=== PATIENT | female | born 1965 | race Caucasian/White ===

== ENCOUNTER 2020-01-02 08:00 | Outpatient (RCR) | payer OTHER, SELFPAY ==
--- NOTE | 2019-12-12 12:31 | PTOPEVAL ---
Thank you for referring Mini Maddox to [facility]. Please review, sign, date and return this plan of care ROCHELLE. Pt referred to therapy to address her UE and neck impairments related to cervical radiculopathy. She demonstrates decreased range, strength, and tolerance with daily activities due to pain. She requires additional skilled therapy 2x/wk x 6 wk to address impairments. I agree with and certify that the following plan of care is medically necessary. Referring Physician Date Attending Provider: Keesha Tom, SAMANTHA *PT Outpatient Evaluation Start: 12/12/19 10:31 Freq: Status: Active Protocol: Document 12/12/19 10:30 CAP (Rec: 12/12/19 11:19 JESSICA [id number]) Therapy Assessment Status Assessment Status Assessment Status Evaluation Outpatient Past Medical History Past Medical History Source of Past Medical History Patient,Recalled from Previous Visit, Confirmed with Patient /Family Neurological History Hx Neurological Disorders No Significant History Cardiovascular History Hx Hypercholesterolemia Yes Respiratory History Hx Respiratory Disorders No Significant History Gastrointestinal History Hx Gastroesophageal Reflux Disease Yes Hx Hernia Yes: hiatal Musculoskeletal History Hx Back Pain Yes Hx Degenerative Disk Disease Yes: L4-5 disc bulging, C 3-4, 4-5, 6-7 level Hx Orthopedic Surgery Yes: trigger finger and thumb release on right, allyson cubital tunnel release Evaluation Information Problem Diagnosis cervical radiculopathy Onset 10 years Cause none Additional Evaluation Detail 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 Her long family has a history anklysosis spondylosis. She is working at [employer] part- time. She is unable to perform squating motion to lift objects. States her muscle stay swollen , sore and painful all the time. She has difficulty with prolonged standing due to the low back. She has c/o
--- NOTE | 2020-01-28 15:00 | PCPTNOTE ---
Admitting Provider: Attending Provider: Keesha Tom, BAT CARRIER-BC Patient:Mini Maddox Date of :1965 Discharge Note Patient has not returned for any further treatments since 01/02/2020, therefore she will be discharged at this time. Patient?s initial visit was on 12/12/2019 10:30 and she had a total of 5 visits. She cancelled her remaining therapy appointments after 01/06/20. The goals have been not met due to limited therapy visits. Thank you for referring this patient to [facility]. Please review, sign, date and return this discharge summary ROCHELLE. I have been updated about the patient's current status and I agree with discharge from the above service at this time. Referring Physician Date
== END 2020-02-03 10:16 | disposition home or self-care (01) ==
LOC: ANHPT 08:00
PROVIDERS: PCP Emergency Medicine; Visit Provider Nurse Practitioner Family
DX: M54.12 Radiculopathy, cervical region (principal)
CPT/HCPCS: 97014; 97110; 97140; 97163; G0283

== ENCOUNTER → 2021-06-20 14:38 | Outpatient (CLI) | payer OTHER, SELFPAY ==
--- NOTE | ~2021-06-20 | XR_ITS ---
XR foot LT min 3V DATE: 06/21/2021 14:23 INDICATION: First metatarsal pain of both feet TECHNIQUE: 4 views COMPARISON: None FINDINGS: Plantar calcaneal enthesopathy without erosive change or periostitis. No fracture, dislocation, periosteal reaction or bone destruction is detected. IMPRESSION: Plantar calcaneal enthesopathy Reviewed, dictated and finalized at location A. C 13 CATAPULT OPERATOR
--- NOTE | ~2021-06-20 | XR_ITS ---
XR foot RT min 3V DATE: 06/20/2021 14:52 INDICATION: Bilateral first metatarsal pain TECHNIQUE: 4 views COMPARISON: 12/07/2004 right foot FINDINGS: There is mild osteoarthritis at the first metatarsophalangeal joint. No fracture or dislocation, periosteal reaction or bone destruction is evident. Small bony density between the bases of first and second metatarsal bones is likely os intermetatarse um, normal variant. IMPRESSION: Mild osteoarthritis at first metatarsophalangeal joint Reviewed, dictated and finalized at location A. R RAT
== END ==
PROVIDERS: PCP Emergency Medicine; Visit Provider Emergency Medicine
DX: M25.572 Pain in left ankle and joints of left foot (principal); M25.571 Pain in right ankle and joints of right foot; M77.32 Calcaneal spur, left foot; M19.071 Primary osteoarthritis, right ankle and foot
CPT/HCPCS: 73630

== ENCOUNTER 2021-07-06 00:54 | Day surgery (SDC) | payer OTHER, SELFPAY ==
--- NOTE | 2021-06-30 14:08 | SUR.PREOP ---
Report to the Outpatient Waiting Room, entrance under the green pavilion located off [facility], at time __0800 on date __07/06/21 . OR Time: ___999 . - You will be asked a series of questions to screen for COVID 19 for your protection. - A mask is required within the hospital. - No visitors are allowed at this time. Preoperative COVID Testing Requirements: No COVID Test needed if: (proof is required; if not received patient will have Rapid Test prior to entry) - Patient has received COVID Vaccine at least 14 days prior to procedure date or - Patient has positive COVID test result within last 90 days of surgery date. COVID Test needed if above criteria is not met If not COVID vaccinated a COVID test must be conducted within 72 hours of surgery and patient is asked to isolate self from time of testing until procedure. You will go to the [facility] for your COVID testing. The [facility] site is located at the corner of [address] [facility]. You will only be called if COVID results are positive and your surgeon may reschedule your elective surgery date. Patients may have clear liquids (water, carbonated beverages, clear teas, apple juice) until 3 hours prior to surgery with a maximum of 20 ounces. - No food from midnight until time of surgery - Infants may have breast milk until 4 hours before surgery, infant formula 6 hours prior to surgery. - Children will be allowed to drink immediately following surgery. If applicable, please bring a bottle or sippy cup to assist with drinking. Juice, water, soda, and popsicles are readily available. For infants on formula, please bring formula the day of surgery. Pacifiers are allowed. Take the following medications with a SIP of water the morning of surgery: ___AMYTRIPTYLLINE, GABAPENTIN Medications to discontinue per physician ALL VITAMINS Date to take last dose 07/03/21 Please no make-up, nail occitan, hairspray, perfume, deodorant, or body powder the day of surgery. No jewelry (including any body piercings) or valuables the day of surgery, leave them at home. Please take a shower or bath the night before, or the morning of, surgery with an antibacterial soap. Wear comfortable, loose fitting clothing. Children are encouraged to wear pajamas. - Jewelry must be removed prior to entering the operating room. Rings and piercings that are not removed may be cut off. - The hospital will not accept responsibility for valuables. - Please leave all valuables, including medications, at home the day of surgery. If you are going home after surgery, a licensed tower truck driver must drive you home. - NO public transportation without another adult. - We recommend that an adult stay with you for 24 hours following discharge. - We also recommend that you do not drive, make important decision, drink alcoholic beverages, or take any drugs that were not prescribed by your health care provider for at least 24 hours after your discharge time. For Pediatric surgeries, we recommend two adults accompany the child home (only one inside the building at this time). Follow any additional instructions given to you from your surgeon. Telephone instructions given to __PATIENT and asked if any additional questions and then verbalized understanding. Patient advised to call surgeon office or pre surgery nurse liaison [phone] if any additional questions.
[2021-06-30 14:20] VITALS: BMI 26.9
--- NOTE | 2021-07-06 07:19 | WPDHPUPDATE1 ---
History and Physical Update Update Date/Time: 07/06/21 07:19 History and Physical has been reviewed, including an updated exam of the patient. There are NO changes in the patient's condition. Risks, benefits, and alternatives have been discussed and questions answered. Patient agrees to proceed with procedure.
--- NOTE | 2021-07-06 07:33 | P.PNAN_ITS ---
Anes - Initial Pre Proc Eval Procedure: Operation Date: 07/06/21 10:00 Proposed Procedures p Right Open Carpal Tunnel Release - Dell Bullock MD Date/Time: 07/06/21 07:33 Surgeon: Dell Bullock MD Pre Op Diagnosis: right carpal tunnel syndrome Patient Data Age: 55 Gender: F Height: 1.7 m Weight: 78 kg Allergies Allergy/AdvReac Type Severity Reaction Status Date / Time codeine AdvReac Mild Headache Verified 07/06/21 08:15 Home Medications Medication Instructions Recorded Confirmed Type amitriptyline 25 mg PO BID 06/30/21 07/06/21 History calcium carbonate-vitamin D3 [All 1 tablet PO DAILY 06/30/21 07/06/21 History Day Calcium] gabapentin 600 mg PO TID 06/30/21 07/06/21 History multivitamin with minerals [All 1 tablet PO DAILY 06/30/21 07/06/21 History Purpose Multivitamin-Min] rosuvastatin 10 mg PO HS 06/30/21 07/06/21 History venlafaxine 37.5 mg PO HS 06/30/21 07/06/21 History vitamin B complex 1 cap PO DAILY 06/30/21 07/06/21 History Patient hx anesthesia problems: none Family hx anesthesia problems: none Results Review: All pre-operative results and documents have been reviewed as part of the pre-operative evaluation. [facility] Past Medical History Medical History (Updated 07/05/21 @ 13:55 by Italo Childers DO) GERD (gastroesophageal reflux disease) Hyperlipidemia Surgical History Surgical History (Updated 07/05/21 @ 13:55 by Italo Childers DO) History of cholecystectomy History of hysterectomy Social History Social History Years smoked: 10 Smoking status: Former smoker Tobacco type: cigarettes Smoking end date: 05/28/06 Alcohol intake: current Drinks per week: 4 Substance use: current Substance use type: marijuana Other substance usage details: [employer] Living arrangements: with family Spiritual care concerns: No Anes - Eval Final PreProcedure Day of Procedure 07/06/21 07:33 Patient weight: overweight Heart: regular rate and rhythm Lungs: clear to auscultation and normal air movement Airway: Mallampati scale class II Neurological: alert and oriented Last oral intake: >/= 8 hours ASA classification: II Emergent: no Anesthetic plan: proceed Anesthesia type and monitoring: general GIVS and standard monitoring Results Review: All pre-operative results and documents have been reviewed as part of the pre-operative evaluation. Informed Consent: The patient's anesthetic plan and its attendant risks and benefits were discussed with the patient/family/POA. Questions were solicited and answers provided to the satisfaction of the patient/family/POA.
[2021-07-06 08:08] VITALS: BP 105/71; PULSE 92; RESP 16; TEMP 36.6; O2SAT 99
[2021-07-06] MEDS: LACTATED RINGERS 1,000 ML 30 ML IV CONT ×2 (08:38→09:55)
[2021-07-06] MEDS: LIDO 1%/EPINEPHRINE/PF 1:200,000 30 ML VIAL INFILTRATE (09:47)
[2021-07-06 09:55] VITALS: BP 119/69; PULSE 94; RESP 16; O2SAT 95
--- NOTE | 2021-07-06 10:01 | W.PM.PROC2 ---
Procedure Note - Detailed Date of Procedure 07/06/21 Pre-op Diagnosis right carpal tunnel syndrome Post-op Diagnosis same Procedure Performed Right open carpal tunnel release Surgeon Dell Bullock MD Anesthesia MAC Description of Procedure The right carpal tunnel was marked the patient in the holding area. She was taken to the operating where she was placed supine on the operating table. Time-out was held and confirmed. She was given IV sedation and the extremity was prepped and draped in usual fashion. The site was marked again for the incision and this area infiltrated with 1% lidocaine with epinephrine. The arm tourniquet was not utilized. The incision was made in the palm and carried bluntly through the subcutaneous tissue to the palmar fascia. This and transverse retinaculum were incised with a 15. Blade. Opening the canal. The retinaculum was divided distally and proximally under 3 point retraction. No unusual anatomy was noted. The skin wound was closed with interrupted 5 0 nylon suture. Small bandage applied usual and she is discharged from the operating room stable condition she has a prescription for hydrocodone number 7 Estimated Blood Loss -5.0 Tourniquet Time 0 Drains No Packing No Complications No immediate complications Condition stable Disposition same day
[2021-07-06 10:25] VITALS: BP 117/68; PULSE 88; RESP 16
[2021-07-06 10:50] VITALS: BP 122/71; PULSE 78; RESP 16
== END 2021-07-06 11:00 | disposition home or self-care (01) ==
PROVIDERS: PCP Emergency Medicine; Visit Provider Plastic Surgery
PROC: (CPT 64721; principal; 2021-07-06 10:00)
DX: G56.01 Carpal tunnel syndrome, right upper limb (principal); E78.5 Hyperlipidemia, unspecified; K21.9 Gastro-esophageal reflux disease without esophagitis; Z87.891 Personal history of nicotine dependence; F12.90 Cannabis use, unspecified, uncomplicated
CPT/HCPCS: 64721; A9270; J1100; J2250; J2405; J2704; J3010; J7120

== ENCOUNTER 2021-11-10 15:58 | Outpatient (CLI) | payer OTHER, SELFPAY ==
--- NOTE | ~2021-11-10 | US_ITS ---
EXAMINATION: US thyroid DATE: 11/10/2021 16:37 INDICATION: Darvin's thyroiditis. TECHNIQUE: Multiple ultrasound images of the thyroid were obtained. COMPARISON: None. FINDINGS: The right thyroid lobe measures 4.7 x 1.7 x 1.9 cm. The left thyroid lobe measures 4.8 x 1.5 x 1.7 c m. The thyroid demonstrates diffusely coarsened echotexture and hypoechogenicity. Vascularity is inc reased. No discrete nodule. IMPRESSION: 1. Heterogeneous, hypervascular thyroid, consistent with chronic lymphocytic (Darvin) thyroiditis. Reviewed, dictated and finalized at location B. IMPRESSION: 1. Heterogeneous, hypervascular thyroid, consistent with chronic lymphocytic (H ashimoto) thyroiditis.
== END 2021-11-10 15:59 | disposition home or self-care (01) ==
PROVIDERS: PCP Emergency Medicine; Visit Provider Emergency Medicine
DX: E06.3 Autoimmune thyroiditis (principal)
CPT/HCPCS: 76536

== ENCOUNTER 2022-03-01 12:30 | Outpatient (RCR) | payer OTHER, SELFPAY ==
--- NOTE | 2022-01-25 14:31 | PTOPEVAL1 ---
Evaluation Information Assessment Status Evaluation Diagnosis low back pain Onset 4 months Subjective Information Pt states about 4 weeks ago she was given an injection in her L hip, she reports this helped some. However the provider that gave her thinks injection states the pain is more likely coming from her low back. Pt reports pain along the lateral side of her L leg down into the bottom of her foot. Pt reports standing in one places causes her the most pain, she can tolerate this for no longer than 30 mins. Pt states she does not think this is sciatic pain because she has had that prior and this feels different. She currently reports pain from her hip to the bottom of her L foot. Reported Pain Level Pain Score 2: Self Report Assessment PT Clinical Summary Mini is an active 56 y/o female who presents to therapy today for her initial evaluation with a diagnosis of low back pain. Today she demonstrates excellent LE strength and ROM. She does demonstrates mild increased lumbar lordosis during static standing and gait. She will benefits from core strengthening, body mechanics, and functional mobility training to work towards pain management and symptom reduction. Plan of Care Interventions Manual Therapy,Neuro Re-education,Patient/ Caregiver Educati,Therapeutic Activities, Therapeutic Exercise PT Services Indicated Yes Treatment Frequency and 1x/wk for 5 wks or until goals are met Duration These treatments will address the objective and functional deficits as defined above. The patient will be advanced safely and appropriately in order for the patient to progress towards his/her prior level of function. Additional exercises will be introduced and as well as a comprehensive home exercise program upon discharge, if needed, ?to ensure carryover of functional gains achieved in the clinic. This treatment plan has been reviewed and agreement upon by the patient.
--- NOTE | 2022-02-15 13:36 | PCPTNOTE ---
Patient called & cancelled scheduled appointment this date due to scheduling conflicts. She has been rescheduled.
--- NOTE | 2022-02-22 13:50 | PCPTNOTE ---
Patient no showed to appointment this date. Unable to leave voicemail due to patient picking up and bad connection.
--- NOTE | 2022-03-01 13:18 | PTOPDC ---
Assessment and note entered by Lauro Perez, PT, DPT Evaluation Information Assessment Status discharge Diagnosis low back pain with radicular symptoms Onset 4 months Subjective Information Pt states she has radiating pain more significantly than when she started therapy. She reports good compliance with her HEP. She states performing her exercises helps the pain in her hips but does not decrease that pain that goes into her legs and into her feet. She reports foot pain as her limiting factor. Pt states she has learned a lot in therapy. Reported Pain Level Pain Score 4: Self Report Assessment PT Clinical Summary Mini presents to therapy today for her progress report following 4 visits of therapy to treat her low back pain with radicular symptoms. Today she reports minor increases in pain and radicular symptoms. She states she has learned a lot in therapy and she can help to reduce her own pain when it occurs. She demonstrates decreased tenderness to palpation and now has a negative slump test allyson. She states she would like to continue her exercise on her own and follow up with her provider. She will be discharged from skilled therapy services at this time with instructions to continue her HEP upon discharge. Plan of Care PT Services Indicated No Treatment Frequency and to be discharged Duration
== END 2022-03-02 10:54 | disposition home or self-care (01) ==
LOC: ANHGOSHPT 12:30
PROVIDERS: PCP Emergency Medicine; Visit Provider Nurse Practitioner Family
DX: M54.50 Low back pain, unspecified (principal)
CPT/HCPCS: 97110; 97112; 97140; 97161; 97530

== ENCOUNTER 2022-09-27 01:25 | Day surgery (SDC) | payer OTHER, SELFPAY ==
[2022-09-15 11:25] VITALS: BMI 25.9
--- NOTE | 2022-09-26 16:42 | PM.HPGS ---
History of Present Illness History of Present Illness Consent: Risks, benefits, and alternatives have been discussed and questions answered. Patient agrees to proceed with procedure. Chief complaint: family hx colon ca, hx of colon polyps Narrative: Mini Maddox is a 56 year old female who was referred for colonoscopy. She has a family history of colon cancer, and she herself has had a polyp removed in the past. Her brother, aunt, and cousin, all have had colon cancer. Review of Systems Review of Systems: All systems reviewed & are unremarkable except as noted in HPI and below PMFSH Past Medical History Medical History (Updated 09/26/22 @ 16:42 by Roger Storey MD) GERD (gastroesophageal reflux disease) Hyperlipidemia Pain, postoperative, acute Surgical History Surgical History History of cholecystectomy History of hysterectomy Social History Social History Years smoked: 10 Smoking status: Former smoker Tobacco type: cigarettes Smoking end date: 05/28/06 Alcohol intake: current Drinks per week: 5 Alcohol use details: wine Substance use: current Substance use type: marijuana Other substance usage details: cbd gummies for sleep Living arrangements: with family Spiritual care concerns: No Meds Home Medications and Allergies Home Medications Medication Instructions Recorded Confirmed Type amitriptyline 25 mg tablet 25 mg PO BID 06/30/21 09/15/22 History calcium carb-vitamin D3 ER 600 mg 1 tablet PO DAILY 06/30/21 09/15/22 History (1,500 mg)-500 unit tablet,ER 24 hr gabapentin 600 mg tablet 600 mg PO TID 06/30/21 09/15/22 History multivitamin with minerals 1 tablet PO DAILY 06/30/21 09/15/22 History rosuvastatin 10 mg tablet 10 mg PO HS 06/30/21 09/15/22 History venlafaxine 37.5 mg 37.5 mg PO HS 06/30/21 09/15/22 History capsule,extended release 24 hr vitamin B complex 1 cap PO DAILY 06/30/21 09/15/22 History Allergies Allergy/AdvReac Type Severity Reaction Status Date / Time codeine AdvReac Mild Headache Verified 09/27/22 07:06 Exam Const: General: alert Orientation/consciousness: patient oriented x3 Resp: Auscultation: clear to auscultation bilaterally Cardio: Rhythm: regular rhythm GI: GI Palp: Yes Soft to palpation and No Tenderness to palpation present (GI) Neuro: General: patient oriented x3 Assessment and Plan Assessment and plan (1) Colon cancer screening: Code(s): Z12.11 - Encounter for screening for malignant neoplasm of colon Status: Acute Assessment and Plan: Colonoscopy with possible biopsy or polypectomy or cautery or injection of substances.
[2022-09-27 07:09] VITALS: BP 137/79; PULSE 94; RESP 16; TEMP 35.9; O2SAT 100
[2022-09-27] MEDS: LACTATED RINGERS 1,000 ML 150 ML IV CONT (07:21)
--- NOTE | 2022-09-27 07:24 | WPDANESEPPF ---
Anes - Initial Pre Proc Eval Procedure: Operation Date: 09/27/22 08:30 Proposed Procedures p Colonoscopy - Roger Storey MD Date/Time: 09/27/22 07:24 Surgeon: Roger Storey MD Pre Op Diagnosis: family hx colon ca, hx of colon polyps Patient Data Age: 56 Gender: F Height: 1.7 m Weight: 75.6 kg Last Vital Signs Temp 35.9 C L 09/27/22 07:09 Pulse 94 09/27/22 07:09 Resp 16 09/27/22 07:09 BP 137/79 09/27/22 07:09 Pulse Ox 100 09/27/22 07:09 O2 Del Method Room Air 09/27/22 07:09 Allergies Allergy/AdvReac Type Severity Reaction Status Date / Time codeine AdvReac Mild Headache Verified 09/27/22 07:06 Home Medications Medication Instructions Recorded Confirmed Type amitriptyline 25 mg tablet 25 mg PO BID 06/30/21 09/15/22 History calcium carb-vitamin D3 ER 600 mg 1 tablet PO DAILY 06/30/21 09/15/22 History (1,500 mg)-500 unit tablet,ER 24 hr gabapentin 600 mg tablet 600 mg PO TID 06/30/21 09/15/22 History multivitamin with minerals 1 tablet PO DAILY 06/30/21 09/15/22 History rosuvastatin 10 mg tablet 10 mg PO HS 06/30/21 09/15/22 History venlafaxine 37.5 mg 37.5 mg PO HS 06/30/21 09/15/22 History capsule,extended release 24 hr vitamin B complex 1 cap PO DAILY 06/30/21 09/15/22 History Patient hx anesthesia problems: none Family hx anesthesia problems: none Results Review: All pre-operative results and documents have been reviewed as part of the pre-operative evaluation. [facility] Past Medical History Medical History (Updated 09/26/22 @ 16:42 by Roger Storey MD) GERD (gastroesophageal reflux disease) Hyperlipidemia Pain, postoperative, acute Surgical History Surgical History History of cholecystectomy History of hysterectomy Social History Social History Years smoked: 10 Smoking status: Former smoker Tobacco type: cigarettes Smoking end date: 05/28/06 Alcohol intake: current Drinks per week: 5 Alcohol use details: wine Substance use: current Substance use type: marijuana Other substance usage details: cbd gummies for sleep Living arrangements: with family Spiritual care concerns: No Anes - Eval Final PreProcedure Day of Procedure 09/27/22 07:24 Patient weight: overweight Heart: regular rate and rhythm Lungs: clear to auscultation and normal air movement Airway: Mallampati scale class II Neurological: alert and oriented Last oral intake: >/= 8 hours ASA classification: II Emergent: no Anesthetic plan: proceed Anesthesia type and monitoring: general GIVS and standard monitoring Results Review: All pre-operative results and documents have been reviewed as part of the pre-operative evaluation. Informed Consent: The patient's anesthetic plan and its attendant risks and benefits were discussed with the patient/family/POA. Questions were solicited and answers provided to the satisfaction of the patient/family/POA.
[2022-09-27 08:08] VITALS: BP 127/86; PULSE 83; RESP 17; O2SAT 100
[2022-09-27 08:18] VITALS: BP 110/67; PULSE 80; RESP 16; O2SAT 100
[2022-09-27 08:28] VITALS: BP 127/74; PULSE 80; RESP 16; O2SAT 100
== END 2022-09-27 08:37 | disposition home or self-care (01) ==
PROVIDERS: PCP Emergency Medicine; Visit Provider Internal Medicine Gastroenterology
PROC: 0DJD8ZZ Inspection of Lower Intestinal Tract, Via Natural or Artificial Opening Endoscopic (ICD-10-PCS; CPT 45378; principal; 2022-09-27 08:30)
DX: Z12.11 Encounter for screening for malignant neoplasm of colon (principal); K57.30 Diverticulosis of large intestine without perforation or abscess without bleeding; Z80.0 Family history of malignant neoplasm of digestive organs; Z86.010 Personal history of colon polyps; E78.5 Hyperlipidemia, unspecified; Z87.891 Personal history of nicotine dependence; F12.90 Cannabis use, unspecified, uncomplicated
CPT/HCPCS: 45378; J2704; J7120

== ENCOUNTER 2022-10-12 07:37 | Outpatient (CLI) | payer OTHER, SELFPAY ==
--- NOTE | ~2022-10-12 | DEXA_ITS ---
Bone Density Report Name: NAKIA REY Age: 56 Sex: Female Ethnicity: White Date of : 1965 Indication: postmenopausal; screening for osteoporosis; hysterectomy; Referring Provider: CHANDLER GONZALEZ Study: Bone densitometry was performed. Exam Date: October 12, 2022 Accession number: [id number] Bone Density: Region BMD T-score Z-score Classification AP Spine(L1-L4) 0.944 -0.9 0.3 Normal Femoral Neck (Left) 0.802 -0.4 0.8 Normal Total Hip (Left) 0.912 -0.2 0.6 Normal Femoral Neck (Right) 0.757 -0.8 0.4 Normal Total Hip (Right) 0.885 -0.5 0.4 Normal Total Hip Mean 0.898 -0.4 0.5 Normal World Health Organization criteria for BMD impression classify patients as: Normal (T-score at or above -1.0), Osteopenia (T-score between -1.0 and -2.5), or Osteoporosis (T-score at or below -2.5). 10-year Fracture Risk: FRAX not reported because: All T-scores for Spine Total, Hip Total, Femoral Neck at or above -1.0 Previous Exams: Region Exam Age BMD T-score BMD Change BMD Change Date g/cm2 vs Baseline vs Previous AP Spine (L1-L4) 10/12/2022 56 0.944 -0.9 -0.063 (-6.3%) -0.063 (-6.3%) 10/15/2017 51 1.007 -0.4 Total Hip(Left) 10/12/2022 56 0.912 -0.2 -0.026 (-2.8%) -0.026 (-2.8%) 10/15/2017 51 0.938 0.0 Total Hip(Right) 10/12/2022 56 0.885 -0.5 -0.069 (-7.2%) -0.069 (-7.2%) 10/15/2017 51 0.953 0.1 *Denotes significance at 95% confidence level, LSC for AP Spine = 0.022 g/cm2, LSC for Total Hip = 0.027 g/cm2 Clinical Information Provided by Patient: Has used the following medications: Vitamin D, Calcium Has the following medical conditions: Hysterectomy Patient maximum height was 67 Menopause Age: 35 No regular weight bearing exercise Drinks caffeinated beverages Onset of menses at age 11 Number of children 2 Impression: The patient has normal bone mass. The BMD for the AP Spine (L1-L4) decreased, changing by -6.3% since the last DXA exam. The BMD for the Total Hip(Right) decreased, changing by -7.2% since the last DXA exam. Discussion: BONE DENSITY IS ABOVE THE MINIMUM DESIRABLE LEVEL AT ALL SKELETAL SITES TESTED. This patient?s bone mineral density is above the minimum desirable level (T-score -1.0 or better) at all sites measured. The patient should follow a healthful lifestyle (good nutrition with adequate calcium and vitamin D, and appropriate weight-bearing exercise). Follow-Up: Consider repeating this study in 3
--- NOTE | ~2022-10-12 | MM_ITS ---
EXAMINATION: MM screening [facility] BI w kevyn HISTORY: Screening mammogram TECHNIQUE: Craniocaudal and mediolateral oblique 3-D tomosynthesis images were obtained and synthetic 2-D images were generated. CAD analysis was submitted and interpreted. COMPARISON: 10/15/2017, 08/08/2006 BREAST PARENCHYMAL COMPOSITION: There are scattered areas of fibroglandular density. FINDINGS: No suspicious mass, calcification, or architectural distortion are identified in either tamara ast to suggest malignancy. There has been no suspicious interval change. IMPRESSION: 1. No mammographic evidence of malignancy. 2. Recommend routine screening mammography in one year. BI-RADS Category 1: Negative Reviewed, dictated and finalized at location A.
== END 2022-10-12 07:38 | disposition home or self-care (01) ==
PROVIDERS: PCP Emergency Medicine; Visit Provider Emergency Medicine
DX: Z12.31 Encounter for screening mammogram for malignant neoplasm of breast (principal); Z78.0 Asymptomatic menopausal state
CPT/HCPCS: 77063; 77067; 77080

== ENCOUNTER 2022-12-18 07:40 | Outpatient (CLI) | payer OTHER, SELFPAY ==
--- NOTE | ~2022-12-18 | US_ITS ---
US abdomen complete EXAMINATION: US Abdomen Complete INDICATION: Liver disease PROCEDURE: Realtime High Resolution abdomen ultrasound. COMPARISON: No prior studies for comparison FINDINGS: Gallbladder within normal limits. No gallstones, pericholecystic fluid, gallbladder wall t hickening or biliary dilatation. Common bile duct measures 4 mm. Liver echotexture is increased, consistent with fatty infiltration.. Pancreas within normal limits. Pancreatic tail is obscured by bowel gas. Spleen is unremarkeable. Renal echotexture is within norm al limits bilaterally without hydronephrosis, contour deforming mass or renal stone. Right kidney aliza sures 10.5 cm. Left kidney measures 10.4 cm. Visualized aspects of the aorta and IVC are within normal limits. Portal vein is patent. No sonograph ic Kulkarni's sign indicated by the technologist. IMPRESSION: 1: Hepatic steatosis. Reviewed, dictated and finalized at location A. IMPRESSION: 1: Hepatic steatosis.
== END 2022-12-18 07:41 | disposition home or self-care (01) ==
LOC: ANHIMG 07:44
PROVIDERS: PCP Emergency Medicine; Visit Provider Emergency Medicine
DX: K76.0 Fatty (change of) liver, not elsewhere classified (principal)
CPT/HCPCS: 76700

== ENCOUNTER 2023-06-29 12:53 | Emergency (ER) | payer BC, SELFPAY ==
[2023-06-29 13:06] VITALS: BP 122/83; PULSE 89; RESP 16; TEMP 36.4; O2SAT 100
--- NOTE | 2023-06-29 13:22 | ED.URI ---
HPI - URI/Sore Throat General Chief Complaint: Upper Respiratory Infection Stated Complaint: SINUS CONGESTION Time Seen by Provider: 06/29/23 13:18 Source: patient and RN notes reviewed Mode of arrival: ambulatory Limitations: no limitations History of Present Illness HPI Narrative: Patient presents today with a 2 week history cough, congestion. Today she noted left ear pain, pressure behind her left eye, and pressure to the left upper jaw/maxillary sinus area. She has been trying Carissa-Mcadoo Plus with mild relief. Reports cough early on, but this has since resolved. Related Data Home Medications Medication Instructions Recorded Confirmed amitriptyline 25 mg tablet 25 mg PO BID 06/30/21 06/29/23 calcium carb-vitamin D3 ER 600 mg 1 tablet PO DAILY 06/30/21 06/29/23 (1,500 mg)-500 unit tablet,ER 24 hr gabapentin 600 mg tablet 600 mg PO TID 06/30/21 06/29/23 multivitamin with minerals 1 tablet PO DAILY 06/30/21 06/29/23 rosuvastatin 10 mg tablet 10 mg PO HS 06/30/21 06/29/23 venlafaxine 37.5 mg 37.5 mg PO HS 06/30/21 06/29/23 capsule,extended release 24 hr ascorbic acid 125 mg-collagen, cap PO 06/01/23 06/01/23 hydrolyzed 740 mg capsule (Collagen Plus Vitamin C) cyclobenzaprine 10 mg tablet 10 mg PO DAILY 06/01/23 06/29/23 esomeprazole magnesium 20 mg 20 mg PO DAILY 06/01/23 06/29/23 capsule,delayed release (Nexium) levothyroxine 50 mcg tablet mcg PO 06/01/23 06/01/23 melatonin 10 mg capsule 10 mg PO QHS 06/01/23 06/29/23 naproxen sodium 220 mg capsule 220 mg PO BID PRN Mild Pain (Scale 06/01/23 06/29/23 Score 1-4) niacin 500 mg tablet 500 mg PO DAILY 06/01/23 06/29/23 vitamin B complex 1 tablet PO DAILY 06/01/23 06/29/23 Allergies Allergy/AdvReac Type Severity Reaction Status Date / Time codeine AdvReac Mild Headache Verified 06/29/23 13:01 Review of Systems Review of Systems: CONSTITUTIONAL: Denies body aches, fever, chills, or sweats. EYES: Denies visual changes, redness, or discharge. ENT: Denies rhinorrhea, sore throat, or otalgia.+ congestion, ear pressure, sinus pressure CARDIOVASCULAR: Denies chest pain, palpitations, or edema. RESPIRATORY: Denies cough or dyspnea. GASTROINTESTINAL: Denies abdominal pain, nausea, vomiting, or diarrhea. GENITOURINARY: Denies dysuria or hematuria. SKIN: Denies rash, itching, or wounds. MUSCULOSKELETAL: Denies back pain, joint pain, or myalgia. NEUROLOGIC: Denies headache, numbness, tingling, or weakness. PSYCH: Denies depression or anxiety. [facility] Past Medical History Medical History Arthritis Carpal tunnel syndrome on both sides GERD (gastroesophageal reflux disease) Darvin's thyroiditis Hyperlipidemia Pain, postoperative, acute Surgical History Surgical History History of cholecystectomy History of hysterectomy History of removal of ovarian cyst Family History Family History Father Alcoholism Depression Mother Thyroid condition Sibling Carcinoma of colon Son Alcoholism Grandparent Heart problem Social History Social History Years smoked: 10 Smoking status: Former smoker Tobacco type: cigarettes Smoking end date: 05/28/06 Alcohol intake: current Drinks per week: 5 Alcohol use details: wine Substance use: current Substance use type: marijuana Other substance usage details: cbd gummies for sleep Do You Feel Safe in your Home?: Yes Lack of Transportation: No Lack of Food: Never True Current Housing: I Have Housing Concerned About Future Housing: No Difficulty Paying Gas/Electric Bills: No Difficulty Paying for Meds: No Currently Unemployed: No Education: High School Diploma/GED Difficulty w/ Childcare or Family Care: No Living arrangements: brianna
== END 2023-06-29 13:30 | disposition home or self-care (01) ==
PROVIDERS: Emergency Provider Nurse Practitioner; PCP Emergency Medicine
DX: J01.90 Acute sinusitis, unspecified (principal); Z87.891 Personal history of nicotine dependence; M19.90 Unspecified osteoarthritis, unspecified site; K21.9 Gastro-esophageal reflux disease without esophagitis; E06.3 Autoimmune thyroiditis; E78.5 Hyperlipidemia, unspecified
CPT/HCPCS: 99213; G0463

== ENCOUNTER 2024-01-31 09:11 | Outpatient (CLI) | payer BC, SELFPAY ==
[2024-01-31 14:43] LABS: Alanine Aminotransferase 34 U/L (6-35); Albumin Level 4.3 g/dL (3.5-5.1); Alkaline Phosphatase 51 U/L (38-126); Anion Gap 5 mmol/L (4-12); Aspartate Amino Transferase 37 U/L (14-36); Bilirubin,Total 0.2 mg/dL (0.2-1.3); Blood Urea Nitrogen 15 mg/dL (7-17); Calcium 9.7 mg/dL (8.4-10.2); Carbon Dioxide 34 mmol/L (22-30); Chloride 100 mmol/L (98-107); Cholesterol 189 mg/dL (0-200); Estimated Glomerular Filt Rate > 60; Glucose 102 mg/dL (65-110); HDL Direct 51 mg/dL; Potassium 5.1 mmol/L (3.4-5.0); Sodium 139 mmol/L (137-145); Triglycerides 276 mg/dL (<150)
[2024-01-31 14:54] LABS: LDL Cholesterol Direct 71 mg/dL
[2024-01-31 15:27] LABS: Free T4 Free Thyroxine 0.82 ng/mL (0.78-2.19)
[2024-01-31 15:40] LABS: Thyroid Stimulating Hormone 0.481 uIU/mL (0.465-4.680)
[2024-01-31 15:57] LABS: Total Triiodothyronine (T3) 1.24 NG/ML (0.97-1.69)
[2024-01-31 17:09] LABS: Hemoglobin A1C 6.1 % (<5.7)
== END 2024-01-31 09:12 | disposition home or self-care (01) ==
LOC: ANHGOSHLAB 09:12
PROVIDERS: PCP Emergency Medicine; Visit Provider Emergency Medicine
DX: E06.3 Autoimmune thyroiditis (principal); E78.5 Hyperlipidemia, unspecified
CPT/HCPCS: 36415; 80053; 80061; 83036; 84439; 84443; 84480

== ENCOUNTER 2024-06-11 00:31 | Day surgery (SDC) | payer BC, SELFPAY ==
[2024-06-04 14:34] VITALS: BMI 25.4
--- NOTE | 2024-06-04 14:41 | PC.NURSE ---
Report to the Outpatient Waiting Room, entrance under the green pavilion located off [facility], at time _0615_ on date _[id number]_. Planned Procedure Time: _0815_.? Time changes happen often and if your time is changed the preop area will call you the afternoon before. - You and your visitor will be asked to self-screen and do not enter if you have any COVID symptoms. Please call surgeon if you need to reschedule. - A mask is optional within the hospital at this time. - No food drink from midnight until time of surgery and no smoking. This includes no chewing gum, candy or mints. Take only the following medications with a SIP of water on the morning of surgery: ___Gabapentin, Amitriptyline, and Levothyroxine DO NOT STOP ANY OF YOUR OTHER PRESCRIPTION MEDICATIONS PRIOR TO SURGERY EXCEPT THE FOLLOWING Medications to discontinue per physician ___Vitamins and supplements Date to take last huzq____[id number]____ Please no make-up, nail sudanese, hairspray, perfume, deodorant, or body powder the day of surgery.? No jewelry (including any body piercings) or valuables the day of surgery, leave them at home.? Please take a shower or bath the night before, or the morning of, surgery with an antibacterial soap.? Wear comfortable, loose fitting clothing.? - Jewelry must be removed prior to entering the operating room.? Rings and piercings that are not removed may be cut off. - The hospital will not accept responsibility for valuables.? - Please leave all valuables, including medications, at home the day of surgery. If you are going home after surgery, a licensed hazmat truck driver must drive you home.? - NO public transportation without another adult if you receive anesthesia. - We recommend that an adult stay with you for 24 hours following discharge. - We also recommend that you do not drive, make important decision, drink alcoholic beverages, or take any drugs that were not prescribed by your health care provider for at least 24 hours after your discharge time. Follow any additional instructions given to you from your surgeon. Telephone instructions given to __Mini__and asked if any additional questions and then verbalized understanding. Patient advised to call surgeon office or pre surgery nurse liaison [phone] if any additional questions.
[2024-06-11] VITALS (7 sets, daily range): BP systolic 94–169; BP diastolic 78–98; PULSE 93–128; RESP 12–17; TEMP 36.2–36.7; O2SAT 95–100
--- NOTE | ~2024-06-11 | XR_ITS ---
EXAMINATION: XR surgery orthopedic DATE: 06/11/2024 09:11 INDICATION: Left thumb ulnar collateral ligament repair TECHNIQUE: 2 fluoroscopic images of the left thumb were obtained during procedure performed by Dr. Ab arroyo. Radiologist was not present for the imaging or procedure. The amount of fluoroscopy time us ed during this procedure was 0.3 minutes. COMPARISON: None. FINDINGS: Bone alignment is normal. Lucent likely suture anchor tract at the ulnar side of the head of the firs t metacarpal. No fracture. Mild polyarticular osteoarthritis at the radial aspect of the carpus and a t the first metacarpophalangeal and interphalangeal joints. There is some additional lucent soft tiss ue gas at the operative bed about the first metacarpophalangeal joint. IMPRESSION: 1. Suture anchor tract at the head of the first metacarpal consistent with reported first metacarpoph alangeal ulnar collateral ligament repair. Procedure note for further detail. Reviewed, dictated and finalized at location B. ONTRACTS MANAGER IMPRESSION: 1. Suture anchor tract at the head of the first metacarpal consistent with repo rted first metacarpophalangeal ulnar collateral ligament repair. Procedure note for further detail.
[2024-06-11] MEDS: LACTATED RINGERS 1,000 ML 30 ML IV CONT ×2 (06:45→09:15)
--- NOTE | 2024-06-11 06:47 | PM.HPGS ---
History of Present Illness History of Present Illness Chief complaint: left trigger thumb Narrative: Patient seen and examined in pre-operative holding area. No interval change in medical history or symptoms. Patient recalls previous discussion of benefits and alternatives to procedure. Continues to desire to proceed with left thumb ulnar collateral ligament repair or reconstruction. Reviewed procedure, post-op expectations and risks including but not limited to bleeding, infection, injury to tendon/nerve/vessel, decreased hand function, stiffness, RSD, no change or worsening of symptoms, failure of repair. I discussed the possible use of assistants and their participation in the case. Patient stated understanding and signed the consent form wishing to proceed. Review of Systems Review of Systems: All systems reviewed & are unremarkable except as noted in HPI and below PMFSH Past Medical History Medical History Carpal tunnel syndrome on both sides Darvin's thyroiditis Arthritis Pain, postoperative, acute GERD (gastroesophageal reflux disease) Hyperlipidemia Surgical History Surgical History History of removal of ovarian cyst History of hysterectomy History of cholecystectomy Family History Family History Father Alcoholism Depression Mother Thyroid condition Sibling Carcinoma of colon Son Alcoholism Grandparent Heart problem Social History Social History Social History: Caffeine-coffee Years smoked: 10 Smoking status: Former smoker Tobacco type: cigarettes Smoking end date: 06/04/06 Alcohol intake: current Drinks per week: 5 Alcohol use details: wine Substance use: current Substance use type: marijuana Other substance usage details: THC gummy every once in awhile in evening. Do You Feel Safe in your Home?: Yes Lack of Transportation: No Lack of Food: Never True Current Housing: I Have Housing Concerned About Future Housing: No Difficulty Paying Gas/Electric Bills: No Difficulty Paying for Meds: No Currently Unemployed: No Education: High School Diploma/GED Difficulty w/ Childcare or Family Care: No Living arrangements: with family Spiritual care concerns: No Meds Home Medications and Allergies Home Medications ?Medication ?Instructions ?Recorded ?Confirmed ?Type multivitamin with minerals 1 tablet PO DAILY 06/30/21 06/04/24 History ascorbic acid 125 mg-collagen, 1 cap PO DAILY 06/01/23 06/04/24 History hydrolyzed 740 mg capsule (Collagen Plus Vitamin C) esomeprazole magnesium 20 mg 20 mg PO DAILY 06/01/23 06/04/24 History capsule,delayed release (Nexium) melatonin 10 mg capsule 10 mg PO QHS 06/01/23 06/04/24 History naproxen sodium 220 mg capsule 220 mg PO BID PRN Mild Pain (Scale 06/01/23 06/04/24 History Score 1-4) niacin 500 mg tablet 500 mg PO DAILY 06/01/23 06/04/24 History vitamin B complex 1 tablet PO DAILY 06/01/23 06/04/24 History amitriptyline 25 mg tablet 25 mg PO BID #180 tabs 01/31/24 06/04/24 Rx cyclobenzaprine 10 mg tablet 10 mg PO DAILY PRN spasms 01/31/24 06/04/24 History levothyroxine 50 mcg tablet 50 mcg PO DAILY #90 tabs 01/31/24 06/04/24 Rx rosuvastatin 10 mg tablet 10 mg PO HS #90 tabs 01/31/24 06/04/24 Rx venlafaxine 37.5 mg 37.5 mg PO HS #90 caps 01/31/24 06/04/24 Rx capsule,extended release 24 hr calcium 600 mg (as 1 tablet PO DAILY 06/04/24 06/04/24 History carbonate)-vitamin D3 10 mcg (400 unit) tablet (Calcium 600 + D(3)) gabapentin 600 mg tablet 600 mg PO TID #90 tabs 06/09/24 Rx Allergies Allergy/AdvReac Type Severity Reaction Status Date / Time codeine AdvReac Mild Headache Verified 06/06/24 09:26 Exam Narrative: unchnaged Assessment and Plan Assessment and plan (1) Sprain of left thumb: Qualifiers: Encounter type: initial encounter Sprain of finger site: metacarpophalangeal joint Qualified Code(s): S63.642A - Sprain of metacarpophalangeal joint of left thumb, initial encounter Code(s): S63.602A - Unspecified sprain of left thumb, initial encounter Status: Acute Assessment and Plan: cont as above
--- NOTE | 2024-06-11 06:48 | W.PM.PROC2 ---
Procedure Note - Detailed Date of Procedure 06/11/24 Pre-op Diagnosis left thumb UCL sprain Post-op Diagnosis Same Procedure Performed left thumb UCL reconstruction Surgeon Néstor Baxter MD Table Games Dual Rate Supervisor dora quintanilla pa-c Anesthesia General and MAC Description of Procedure INFORMED CONSENT: The patient was seen and examined and marked in the pre-op area.? The patient signed the consent form. PROCEDURE IN DETAIL:The patient taken back to OR on the stretcher in supine position. Time out performed with anesthesia, surgeon and staff agreeing on patient's name site and surgery to be performed SCDs were placed on the lower extremities and inflated. A tourniquet was placed on {left} upper extremity and antibiotics given IV After anesthesia administered sedation I injected {5}cc 1%lido and 0.5% marcaine plain for thenar block The?{left upper extremity}?was prepped and draped in sterile fashion the??{left upper extremity} was? exsanguinated with Esmarch bandage and tourniquet inflated to 250mmHg Proceeded with making a sigmoidal incision left ulnar collateral ligament with a 15 blade scalpel through skin and dermis. Littler scissors were used to spread the subcutaneous tissue down to the adductor aponeurosis. The abductor was incised on its superior margin and reflected. I incised and reflected the joint capsule revealing a complete tear of proper ulnar collateral ligament from the proximal phalanx and attentuated accessory collateral ligament. The joint was inspected and articular surface appeared viable. I proceeded with placing a 0.062 k-wire in the metacarpal head and the volar third of the proximal phalanx base. wire placement was verified on multiple views of fluoroscopy. I proceeded with drilling the proximal anchor site and placed an arthrex swivel lock anchor with internal brace. I then drilled over the P1 k-wire and while holding the joint in reduction I placed another arthrex swivel lock anchor with the internal brace and a 4-0 fiberwire. The 4-0 fiberwire was used to suture the ucl remant down to the proximal phalanx anchor point and to repair the capsule. After irrigation the adductor was repaired with 5-0 prolene. There was good maintenance of reduction and resisteance to lateral stress and no impingement on mpj flexion noting the thumb could touch the base of small finger. joint reduction was verified on mini-c-arm multiple views. The skin was closed with 4-0 chromic A dressing of xeroform, 4x4, bhavana, and a thumb spica splint was applied for patient safety, security, and comfort and secured with an parth bandage after the tourniquet was let down noting the hand was warm and well perfused. The patient was then awaken from anesthesia and transferred to the recovery room in stable condition.? Complications - none EBL- 0cc Disposition - home in stable conditions dora Quintanilla PA-C was essential for positioning, retraction, fluoro, closure and dressing placement [facility] [place] Surgery - Charge Forward: Surgery Billing ([id number] for dora)
--- NOTE | 2024-06-11 07:56 | P.PNAN_ITS ---
Anes - Initial Pre Proc Eval Procedure: Operation Date: 06/11/24 08:15 Proposed Procedures p Left Thumb Ulnar Collateral Ligament Repair and Reconstruction - Néstor Baxter MD Date/Time: 06/11/24 07:56 Surgeon: Néstor Baxter MD Pre Op Diagnosis: left trigger thumb Patient Data Age: 58 Gender: F Height: 1.7 m Weight: 73.1 kg Last Vital Signs Temp 98.1 F 06/11/24 07:45 Pulse 93 06/11/24 07:45 Resp 16 06/11/24 07:45 BP 134/78 06/11/24 07:45 Pulse Ox 95 06/11/24 07:45 O2 Del Method Room Air 06/11/24 07:45 Allergies Allergy/AdvReac Type Severity Reaction Status Date / Time codeine AdvReac Mild Headache Verified 06/11/24 07:41 Home Medications ?Medication ?Instructions ?Recorded ?Confirmed ?Type multivitamin with minerals 1 tablet PO DAILY 06/30/21 06/11/24 History ascorbic acid 125 mg-collagen, 1 cap PO DAILY 06/01/23 06/11/24 History hydrolyzed 740 mg capsule (Collagen Plus Vitamin C) esomeprazole magnesium 20 mg 20 mg PO DAILY 06/01/23 06/11/24 History capsule,delayed release (Nexium) melatonin 10 mg capsule 10 mg PO QHS 06/01/23 06/11/24 History naproxen sodium 220 mg capsule 220 mg PO BID PRN Mild Pain (Scale 06/01/23 06/11/24 History Score 1-4) niacin 500 mg tablet 500 mg PO DAILY 06/01/23 06/11/24 History vitamin B complex 1 tablet PO DAILY 06/01/23 06/11/24 History amitriptyline 25 mg tablet 25 mg PO BID #180 tabs 01/31/24 06/11/24 Rx cyclobenzaprine 10 mg tablet 10 mg PO DAILY PRN spasms 01/31/24 06/11/24 History levothyroxine 50 mcg tablet 50 mcg PO DAILY #90 tabs 01/31/24 06/11/24 Rx rosuvastatin 10 mg tablet 10 mg PO HS #90 tabs 01/31/24 06/11/24 Rx venlafaxine 37.5 mg 37.5 mg PO HS #90 caps 01/31/24 06/11/24 Rx capsule,extended release 24 hr calcium 600 mg (as 1 tablet PO DAILY 06/04/24 06/11/24 History carbonate)-vitamin D3 10 mcg (400 unit) tablet (Calcium 600 + D(3)) gabapentin 600 mg tablet 600 mg PO TID #90 tabs 06/09/24 06/11/24 Rx Patient hx anesthesia problems: none Family hx anesthesia problems: none Results Review: All pre-operative results and documents have been reviewed as part of the pre- operative evaluation. [facility] Past Medical History Medical History Carpal tunnel syndrome on both sides Darvin's thyroiditis Arthritis Pain, postoperative, acute GERD (gastroesophageal reflux disease) Hyperlipidemia Surgical History Surgical History History of removal of ovarian cyst History of hysterectomy History of cholecystectomy Family History Family History Father Alcoholism Depression Mother Thyroid condition Sibling Carcinoma of colon Son Alcoholism Grandparent Heart problem Social History Social History Social History: Caffeine-coffee Years smoked: 10 Smoking status: Former smoker Tobacco type: cigarettes Smoking end date: 06/04/06 Alcohol intake: current Drinks per week: 5 Alcohol use details: wine Substance use: current Substance use type: marijuana Other substance usage details: THC gummy every once in awhile in evening. Do You Feel Safe in your Home?: Yes Lack of Transportation: No Lack of Food: Never True Current Housing: I Have Housing Concerned About Future Housing: No Difficulty Paying Gas/Electric Bills: No Difficulty Paying for Meds: No Currently Unemployed: No Education: High School Diploma/GED Difficulty w/ Childcare or Family Care: No Living arrangements: with family Spiritual care concerns: No Anes - Eval Final PreProcedure Day of Procedure 06/11/24 07:56 Patient weight: normal Heart: regular rate and rhythm Lungs: clear to auscultation Airway: Mallampati scale class II Neurological: alert and oriented Last oral intake: >/= 8 hours ASA classification: II Emergent: no Anesthetic plan: proceed Anesthesia type and monitoring: general GIVS and standard monitoring Results Review: All pre-operative results and documents have been reviewed as part of the pre- operative evaluation. Hyperlipidemia, hypothyroidism. Informed Consent: The patient's anesthetic plan and its attendant risks and benefits were discussed with the patient/family/POA. Questions were solicited and answers provided to the satisfaction of the patient/family/POA.
[2024-06-11] MEDS: LIDOCAINE 1% LOCAL INJ 10 ML VIAL INFILTRATE (08:12)
[2024-06-11] MEDS: ceFAZolin 2 GM/D5W 50 ML 2 GM/50 ML BAG IVPB (08:14)
== END 2024-06-11 10:47 | disposition home or self-care (01) ==
PROVIDERS: PCP Emergency Medicine; Visit Provider Plastic Surgery
PROC: (CPT 26540; principal; 2024-06-11 08:15)
DX: S63.642A Sprain of metacarpophalangeal joint of left thumb, initial encounter (principal); E78.5 Hyperlipidemia, unspecified; E06.3 Autoimmune thyroiditis; G56.03 Carpal tunnel syndrome, bilateral upper limbs; M19.90 Unspecified osteoarthritis, unspecified site; K21.9 Gastro-esophageal reflux disease without esophagitis; F12.90 Cannabis use, unspecified, uncomplicated; X58.XXXA Exposure to other specified factors, initial encounter; Z79.1 Long term (current) use of non-steroidal anti-inflammatories (NSAID); Z98.890 Other specified postprocedural states; Z90.49 Acquired absence of other specified parts of digestive tract; Z87.891 Personal history of nicotine dependence; Z80.0 Family history of malignant neoplasm of digestive organs; Z82.49 Family history of ischemic heart disease and other diseases of the circulatory system
CPT/HCPCS: 26540; 99199; C1713; J0690; J1100; J1596; J2003; J2250; J2371; J2405; J2704; J3010; J7120

== ENCOUNTER 2024-07-18 08:31 | Outpatient (CLI) | payer BC, SELFPAY ==
--- NOTE | ~2024-07-18 | XR_ITS ---
Left Hand Technique: PA, oblique, and lateral views were obtained. Clinical History: Sprain Findings: No acute fracture or dislocation is seen. Osseous alignment is anatomic. There is mild dege nerative change of the first CMC joint and interphalangeal joint of the thumb.. Soft tissues are unre markable. Impression: Mild degenerative changes, as above. Reviewed, dictated and finalized at location . NER OPERATOR Impression: Mild degenerative changes, as above.
--- OUTSIDE RECORDS SUMMARY | 2024-07-18 08:47 | XMS_ITS | Referral Summary ---
Author Organization [facility] Address [address] [place] [address] Care Team Providers Care Coating Mixer Tender Name Role Phone Cosmo Ruiz MD Primary Care Provider [phone] Source Comments [facility],non-owned Affiliates and Associated Physician Practices is amultiple site organization consisting of ambulatory clinics and hospital sitesin [place], [place], [place] and [place]. This disclosure is being madepursuant to the Care Everywhere program and may not contain all information available regarding this patient. Last updated 18.[facility] Allergies Active Allergy Reactions Criticality Noted Date Comments Codeine Anaphylaxis High 10/02/2017 Medications * Be aware that medications may not be up to date on this document. Alwaysverify current medications with the patient. Medication Sig Dispensed Refills Start Date End Date Status cyclobenzaprine (FLEXERIL) 10 MG tablet Take 10 mg by mouth as needed 05/15/2018 Active esomeprazole (NEXIUM) 40 MG capsule Take 1 capsule by mouth as directed 02/13/2018 Active calcium carbonate - vitamin D (CALCIUM + D3) 600-800 MG-UNIT tablet Take 1 tablet by mouth 2 times daily Active multivitamin daily tablet Take 1 tablet by mouth daily with food Active naproxen sodium ([employer] NAPROXEN SODIUM) 220 MG tablet Take 220 mg by mouth 2 times daily Active Melatonin 10 MG Take 10 mg by mouth at bedtime Active niacin CR 500 MG tablet Take 500 mg by mouth at bedtime Active simvastatin (ZOCOR) 40 MG tablet Take 40 mg by mouth at bedtime 04/19/2020 Active venlafaxine XR 24hr (EFFEXOR XR) 37.5 MG capsule Take 37.5 mg by mouth daily with food 06/10/2020 Active amitriptyline (ELAVIL) 25 MG tablet Take 25 mg by mouth at bedtime 06/26/2020 Active gabapentin (NEURONTIN) 600 MG tablet Take 600 mg by mouth 3 times daily 06/26/2020 Active Active Problems Problem Noted Date Diagnosed Date Brachioradial pruritus 07/10/2020 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 06/28/2020 Disorder of liver 06/28/2020 Gastro-esophageal reflux disease without esophag itis 06/28/2020 Generalized anxiety disorder 06/28/2020 Hyperglycemia 06/28/2020 Inconclusive mammogram 06/28/2020 Lumbago with sciatica, left side 06/28/2020 Hyperlipidemia 06/28/2020 Hyperlipidemia, unspecified 06/28/2020 Hypercalcemia 06/28/2020 Gastro-esophageal reflux disease without esophag itis 06/28/2020 Encounter for general adult medical examination with abnormal findings 06/28/2020 Chronic pain disorder 06/28/2020 Neuropathy 06/28/2020 Other spondylosis, cervical region 06/28/2020 Polyp of colon 06/28/2020 Trigger finger, right middle finger 06/28/2020 Radiculopathy, cervical region 06/28/2020 Other spondylosis, lumbar region 06/28/2020 Immunizations Name Administration Dates Next Due INFLUENZA VACCINE, CELL CULT URE, QUADR. (FLUCELVAX QUADRIVALENT; 6MO+) (CCIIV4) 02/17/2020 Social History Tobacco Use Types Packs/Day Years Used Date Smoking Tobacco: Former Cigarettes Q uit: 2006 Smokeless Tobacco: Never Alcohol Use Standard Drinks/Week Comments Yes 7 (1 standard drink = 0.6 oz pur e alcohol) Sex and Gender Information Value Date Recorded Sex Assigned at Not on file Gender Identity Not on file Sexual Orientation Not on file Last Filed Vital Signs Vital Sign Reading Time Taken Comments Blood Pressure 126/79 07/09/2020 9:50 AM REGULATOR INSPECTOR Pulse 100 07/09/2020 9:50 AM REGULATOR INSPECTOR Temperature 36.7 C (98 F) 07/09/2020 9:50 AM REGULATOR INSPECTOR Respiratory Rate 16 07/09/2020 9:50 AM REGULATOR INSPECTOR Oxygen Saturation 100% 07/09/2020 9:50 AM REGULATOR INSPECTOR Inhaled Oxygen Concentration - - Weight 74.8 kg (165 lb) 07/09/2020 9:50 AM REGULATOR INSPECTOR Height 170.2 cm (5' 7 ) 07/09/2020 9:50 AM REGULATOR INSPECTOR Body Mass Index 25.84 07/09/2020 9:50 AM REGULATOR INSPECTOR Plan of Treatment Not on file Care Teams Coating Mixer Tender Relationship Specialty Start Date End Date Cosmo Ruiz MD PCP - General 06/25/20
--- OUTSIDE RECORDS SUMMARY | 2024-07-18 08:47 | XMS_ITS | Continuity of Care Document ---
Author Organization [facility] Address [address] [place] [address] [place] [address] Phone Care Team Providers Care Thermograph Operator Name Role Phone Cosmo Ruiz MD Unavailable Unavailable Allergies, Adverse Reactions, Alerts Substance Reaction Status Criticality codeine Active No Information Medications Medication Instructions Dosage Effective Dates (start - stop) Status Comments Neurontin 600 mg tablet take 1 tablet by oral route 3 times every day 600 MG - Active avoid driving or operate machines amitriptyline 25 mg tablet take 1 tablet by oral route 2 times every day 25 MG - Active avoid driving or operate machines Synthroid 50 mcg tablet take 1 tablet by oral route every day 50 MCG - Active Crestor 10 mg tablet take 1 tablet by oral route every day 10 MG - Active Effexor XR 37.5 mg capsule,extended release take 1 capsule by oral route every day with food 37.5 MG - Active Nexium 40 mg capsule,delayed release take 1 capsule by oral route every day 40 MG - Active Problems Condition Type Effective Dates (start - stop) Clini tea Status Comments No Known Problems Procedures Procedure Date OFFICE/OUTPATIENT VISIT, EST OFFICE/OUTPATIENT VISIT, EST OFFICE/OUTPATIENT VISIT, EST PREV VISIT, EST, AGE 40-64 OFFICE/OUTPATIENT VISIT, EST OFFICE/OUTPATIENT VISIT, EST OFFICE/OUTPATIENT VISIT, EST OFFICE/OUTPATIENT VISIT, EST PREV VISIT, EST, AGE 40-64 OFFICE/OUTPATIENT VISIT, EST OFFICE/OUTPATIENT VISIT, EST OFFICE/OUTPATIENT VISIT, EST PREV VISIT, EST, AGE 40-64 OFFICE/OUTPATIENT VISIT, EST OFFICE/OUTPATIENT VISIT, EST OFFICE/OUTPATIENT VISIT, EST OFFICE/OUTPATIENT VISIT, EST OFFICE/OUTPATIENT VISIT, EST OFFICE/OUTPATIENT VISIT, EST PREV VISIT, NEW, AGE 40-64 OFFICE/OUTPATIENT VISIT, NEW Advance Directives Directive Yes / No Effective Date File Name No Information Encounters Encounter Description Practice Location Reason(s) For Visit Diagnoses Date Provider Providers Copied on Encounter [facility], [address], [place], [id number], tel:[phone] [facility] No Information 3 Joseph Man [address], [address] , [place]. tel:[phone] OFFICE/OUTPA TIENT VISIT, [facility], [address], [address], [place] tel:[phone] [facility] hashimoto1 (chief complaint) neuropathy 1 (chief complaint) diverticul osis1 (chief complaint) fatty liver1 (chief complaint) Fatty liverHashimoto's thyroiditisIdiopath ic progressive neuropathyDiverticu losis of intestine without abscess without bleedingOther specified disorder of bone densityInconclusive mammogram 3 Joseph Man [address], [address] , [place]. tel:[phone] OFFICE/OUTPA TIENT VISIT, [facility], [address], [place], [address], [place] tel:[phone] [facility] liver disease1 (chief complaint) colon1 (chief complaint) bone (chief complaint) spot (chief complaint) Liver diseaseOther specified disorder of bone densityPolyp of colonEczema 3 Joseph Man [address], [place], [place], [address] , [place]. tel:[phone] OFFICE/OUTPA TIENT VISIT, EST [facility], [address], [place], [place], [address], [place] tel:[phone] [facility] UTI1 (chief complaint) HLP (chief complaint) LFT (chief complaint) Acute cystitis without hematuriaMixed hyperlipidemiaLiver disease 0 3 Joseph Man [address], [place], [place], [address] , [place]. tel:[phone] PREV VISIT, EST, AGE 40-64 [facility], [address], [place], [place], [address], [place] tel:[phone] [facility] physical (chief complaint) Encounter for general adult medical examination without abnormal findings 3 Joseph Wilburn. [address], [place], [place], [address] , [place]. tel:[phone] OFFICE/OUTPA TIENT VISIT, EST [facility], [address], [place], [place], [address], [place] tel:[phone] [facility] hashimoto1 (chief complaint) back pain1 (chief complaint) neuropathy 1 (chief complaint) Kerline's thyroiditisEncounte r for oth screening for malignant neoplasm of breastOther spondylosis, lumbar regionIdiopathic progressive neuropathy 2 Joseph Man [address], [place], [place], [address] , [place]. tel:[phone] OFFICE/OUTPA TIENT VISIT, EST [facility], [address], [place], [place], [address], [place] tel:[phone] [facility] hashimoto1 (chief complaint) Kerline's thyroiditis 2 Joseph Wilburn. [address], [place], [place], [address] , [place]. tel:[phone] OFFICE/OUTPA TIENT VISIT, EST [facility], [address], [place], [address], [place] tel:[phone] [facility] Medicine hashimoto1 (chief complaint) HLP (chief complaint) UTI1 (chief complaint) HyperlipidemiaHashi gwen's thyroiditisUrinary tract infection 2 Joseph Wilburn. [address], [place], [place], [address] , [place]. tel:[phone] OFFICE/OUTPA TIENT VISIT, EST [facility], [address], [place], [address], [place] tel:[phone] [facility] UTI1 (chief complaint) glucose1 (chief complaint) HLP (chief complaint) thyroid1 (chief complaint) foot pain1 (chief complaint) Hyperlipidemia, unspecifiedHypothyr oidismHyperglycemia Urinary tract infectionEncounter for screening for malignant neoplasm of colonPain in unspecified foot 2 Joseph Man [address], [place], [place], [address] , [place]. tel:[phone] PREV VISIT, EST, AGE 40-64 [facility], [address], [place], [address], [place] tel:[phone] [facility] physical (chief complaint) Encounter for general adult medical examination without abnormal findings 2 Joseph Wilburn. [address], [place], [address] , [place]. tel:[phone] OFFICE/OUTPA TIENT VISIT, EST [facility], [address], [place], [place], [address], [place] tel:[phone] [facility] Medicine HLp (chief complaint) anxiety1 (chief complaint) neuropathy 1 (chief complaint) knee pain1 (chief complaint) Generalized Anxiety DisorderNeuropathyL iver diseaseHyperlipidem iaPain in unspecified knee 1 Joseph Man [address], [place], [place], [address] , [place]. tel:[phone] OFFICE/OUTPA TIENT VISIT, EST [facility], [address], [place], [address], [place] tel:[phone] [facility] chronic pain1 (chief complaint) KCL (chief complaint) Liver (chief complaint) HyperkalemiaNeuropa thyLiver diseaseChronic pain syndrome 0 Joseph Man [address], [place], [place], [address] , [place]. [phone] OFFICE/OUTPA TIENT VISIT, EST [facility], [address], [place], [address], [place] [phone] [facility] HLP (chief complaint) glucose1 (chief complaint) LFT (chief complaint) neuropathy 1 (chief complaint) HyperglycemiaLiver diseaseHyperkalemia Generalized Anxiety DisorderNeuropathyH yperlipidemia 0 Joseph Man [address], [place], [place], [address] , [place]. [phone] Referring Provider: Jefry Kay [address], [place], [place], [address]. tel:[phone] PREV VISIT, EST, AGE 40-64 [facility], [address], [place], [address], [place] tel:[phone] [facility] physical (chief complaint) Encntr for general adult medical exam w/o abnormal findings 9 Joseph Man [address], [place], [place], [address] , [place]. [phone] OFFICE/OUTPA TIENT VISIT, EST [facility], [address], [place], [place], [address], [place] tel:[phone] [facility] GERD1 (chief complaint) chronic pain1 (chief complaint) GERD w/o esophagitisNeuropat hyChronic pain syndrome 9 Joseph Man [address], [place], [address] , [place]. tel:[phone] Referring Provider: Jefry Kay [address], [place], [place], [address]. tel:[phone] OFFICE/OUTPA TIENT VISIT, [facility], [address], [place], [place], [address], [place] tel:[phone] [facility] neck pain1 (chief complaint) back pain1 (chief complaint) GERD1 (chief complaint) Other spondylosis, cervical regionOther spondylosis, lumbar regionBarrett's esophagus without dysplasiaLumbago with sciatica, left side 9 Joseph Wilburn. [address], [place], [place], [address] , [place]. tel:[phone] Referring Provider: Jefry Kay [address], [place], [address]. tel:[phone] OFFICE/OUTPA TIENT VISIT, [facility], [address], [place], [address], [place] tel:[phone] [facility] sciatica1 (chief complaint) neck pain1 (chief complaint) anxiety1 (chief complaint) Other spondylosis, cervical regionOther spondylosis, lumbar regionGeneralized Anxiety Disorder 9 Joseph Wilburn. [address], [place], [place], [address] , [place]. tel:[phone] Referring Provider: Jefry Kay [address], [place], [place], [address]. tel:[phone] OFFICE/OUTPA TIENT VISIT, [facility], [address], [place], [address], [place] tel:[phone] [facility] HLp (chief complaint) calcium1 (chief complaint) A1c (chief complaint) back pain1 (chief complaint) HypercalcemiaHyperg lycemiaPolyp of colonChronic pain syndromeHyperlipide shira 8 Joseph Man [address], [place], [address] , [place]. tel:[phone] Referring Provider: Jefry Kay [facility] [address], [place], [place], [address]. tel:[phone] OFFICE/OUTPA TIENT VISIT, [facility], [address] [place] [address] [place], [address], tel:[phone] [facility] GERD1 (chief complaint) colon polyp1 (chief complaint) HLP (chief complaint) glucose1 (chief complaint) hand pain1 (chief complaint) Crow's esophagus without dysplasiaPolyp of colonHyperlipidemia HypercalcemiaTrigge r finger, right middle finger Sep- 8 Joseph Wilburn. [address] [facility] [address], [place], [place], [address] , [place]. tel:[phone] Referring Provider: Jefry Kay [facility] [address], [place], [place], [address]. tel:[phone] OFFICE/OUTPA TIENT VISIT, [facility], [facility] [address] [place], [address], [place] tel:[phone] [facility] LFt (chief complaint) glucose1 (chief complaint) HLP (chief complaint) neck pain1 (chief complaint) GERD1 (chief complaint) Hyperlipidemia, unspecifiedHypergly cemiaLiver diseaseGERD w/o esophagitisRadiculo ellen, cervical regionInconclusive mammogram 8 Joseph [facility] [place], [place], [address] , [place]. [phone] Referring Provider: Jefry Kay [address], [place], [place], [address]. tel:[phone] PREV VISIT, NEW, AGE 40-64 [facility], [address] [place], [address], [place] tel:[phone] [facility] physical (chief complaint) Encounter for general adult medical exam w abnormal findingsHyperlipide shira, unspecifiedGastro-e sophageal reflux disease without esophagitisRadiculo ellen, cervical region 8 Joseph [address], [place], [place], [address] , . tel:[phone] Referring Provider: Jefry Kay [facility] A, [place], [place], [address]. tel:[phone] Family History Family Member Type Diagnosis Age At Onset Mother Problem (finding) Alive and well Brother Problem (finding) colon CA 57 Brother Problem (finding) Alive and well Father Problem (finding) cirrhosis from alcohol 55 Payers Payer name Insurance type Covered republican ID Authoriza tion(s) No Information Social History Type Description Quantity Date Captured Comments Alcohol Use Details Unknown Caffeine Use Details Unknown Tobacco Use Status No Information Smoking Status No Information Sex Female Chief Complaint And Reason For Visit No Information Plan Of Treatment Date Type Action Status Goal Special diet education compl eted Goal Special diet education compl eted Goal Special diet education compl eted Goal Special diet education compl eted Goal Special diet education compl eted Goal Special diet education compl eted Goal Special diet education compl eted Referral Ordered: COLONOSCOPY AND BIOPSY ordered Referral Ordered: US THYROID ordered Referral Ordered: IHSAN NANCE -Podiatric Medicine & Surgery Service Providers : Lettuce Trimmer (related to Encounter for general adult medical examination without abnormal findings) ordered Referral Ordered: FOOT XRAY, TWO VIEW Bilateral ordered Referral Referred To: IHSAN NANCE [address] [facility] [place], [place], [phone] Ordered: Referrals: Podiatric Medicine & Surgery Service Providers : Lettuce Trimmer. IHSAN NANCE. Evaluate and treat ordered Referral Ordered: Yvan Salazar -Allopathic & Osteopathic Physicians : Orthopaedic Surgery (related to Pain in unspecified knee) ordered Referral Referred To: Yvan Salazar [address], [place], [id number] Ordered: Referrals: Allopathic & Osteopathic Physicians : Orthopaedic Surgery. Yvan Salazar. Evaluate and treat ordered Referral Ordered: Pain Medicine (related to Chronic pain syndrome) ordered Referral Ordered: Referrals: Pain Medicine. Evaluate and treat ordered Referral Ordered: US EXAM, ABDOM, COMPLETE ordered Referral Referred To: Hernan Young MD [address]
[place], [address] Ordered: Referrals: Hernan Young MD. Evaluate and treat ordered Referral Ordered: US ARTERIAL DOPPLER ordered Referral Ordered: SENSE NERVE CONDUCTION TEST ordered Referral Ordered: Physical Therapy (related to Other spondylosis, lumbar region) ordered Referral Referred To: Physical Therapy Ordered: Referrals: Physical Therapy. Evaluate and treat ordered Referral Ordered: MRI LUMBAR SPINE W/O DYE ordered Referral Ordered: CERVICAL SPINE XRAY 7 VIEWS ordered Referral Ordered: Booker Tay -Allopathic & Osteopathic Physicians : Surgery (related to Trigger finger, right middle finger) ordered Referral Referred To: Booker Tay [address] [place], [place] [id number] Ordered: Referrals: Allopathic & Osteopathic Physicians : Surgery. Booker Tay. Evaluate and treat ordered Referral Ordered: MRI NECK SPINE W/O DYE ordered Referral Ordered: OPERATIVE UPPER GI ENDOSCOPY ordered Referral Ordered: DXA BONE DENSITY, AXIAL ordered Referral Ordered: MAMMOGRAM, ONE BREAST ordered Referral Ordered: MAMMOGRAM, SCREENING ordered History Of Present Illness Encounter Date Complaint History Of Prese nt Illness hashimoto1 Pt has kerline thyroid disease Pt denies any dysphagia or neck pain. Pt needs synthroid refilled neuropathy1 Pt has periphera l neuropathy Pt takes amitriptyline and neurontin and doing ok Pt needs above refilled. diverticulosis1 Pt has diverticu losis on recent colonoscopy. Pt denies any GI issue fatty liver1 Pt has mildly el evated LFT Pt denies any abd pain or jaundice Pt has fatty liver liver disease1 Pt has liver dis ease Pt denies any abd pain or jaundice. Pt drinks alcohol socially. Pt has not done liver ultrasound yet colon1 Pt has history o f benign colon polyp pt denies any lower GI issue Pt had colonoscopy done recently and did not show any polyp. Pt was told to repeat in 5 years bone Pt had bone dens ity done which as ok per patient .Pt denies any fx. Pt also had benign mammo spot Pt has a slightl y rough and scaly spot above left side of lip for several months. Pt denies any size change or itching. Pt denies any dark pigmentation HLP Pt has mild high TG Pt is on crestor Her lipid profile is ok. pt denies any myalgia LFT Pt has mildly hi gh LFT ,Pt denies any abd pain or jaundice. UTI1 Pt has UTI Pt c/ o mild dysuria burning and frequency and urgency .Pt denies any fever, chill, pelvic pain physical Pt needs annual physical Pt has chronic anxiety and depression Pt takes effexor and doing ok Pt denies any suicidal or homicidal thought Pt denies any crying spells. Pt has HLP ,Pt takes crestor. Pt denies any myalgia. Pt has chronic neck and back pain. Pt has mild radiculopathy and neuropathy symptoms. Pt takes amitriptyline and neurontin and doing ok Pt is seeing pain management with injection which helps. Pt has kerline Pt takes synthroid pt denies any dysphagia or neck pain. hashimoto1 Pt has kerline thyroid disease. Pt takes synthroid 50 mcg and her tsh is ok now. Pt denies any dysphagia or neck pain neuropathy1 Pt has periphera l neuropathy. Pt takes neurontin and amitriptyline Pt needs refill Pt denies any claudication Pt denies any cold extremity back pain1 Pt has chronic l ow back pain due to DDD and spinal stenosis. Pt has sciatica and leg numbness and tingling Pt denies any loss of bowel or bladder control or saddle area paresthesia. Pt is seeing capo management and she had back injection recently. Pt is on Neurontin hashimoto1 Pt has kerline thyroiditis. Pt started 25 mcg synthroid 6 weeks ago and her thyroid is still under replaced. Pt denies any dysphagia or neck pain. Pt does feel mild fatigue with difficulty losing weight. Pt denies any edema. Thyroid ultrasound showed hypervascular thyroid consistent with kerline thyroiditis. hashimoto1 Pt has low thyro id with high TPO. Pt denies any dysphagia or neck pain Pt denies any fatigue or weight gain Pt has difficulty losing weight UTI1 Pt denies any ur inary symptoms. her UA is clear now. HLP Pt has HLP Pt ta marlee whelan and her lipid profile is much better .Pt denies any myalgia UTI Pt has asymptoma tic UTI. Pt denies any abd pain or any urinary symptoms Pt denies any fever, chill glucose1 Pt has high gluc ose. Pt denies any polyuria polydipsia HLP Pt has HLP, Pt t akes zocor 20 mg daily and her lipid profile is over 200 thyroid1 Pt has borderlin e low thyroid Pt denies any dysphagia or neck pain .Pt denies any fatigue foot pain1 Pt carolina arthritis and heel spur on foot x ray. Pt has carin with hosiery mender next week. Pt denies any injury. physical Pt needs annual physical Pt has chronic anxiety and depression Pt takes effexor and doing ok Pt denies any suicidal or homicidal thought Pt denies any crying spells. Pt has HLP ,Pt takes zocor Pt denies any myalgia. Pt has chronic neck and back pain. Pt has mild radiculopathy and neuropathy symptoms. Pt takes amitriptyline and neurontin and doing ok Pt is seeing pain management with injection which helps. Pt c/o acute onset of bilateral 1st MP joint pain, worse on right for several weeks. pt denies any injury. Pt works at [employer] and she has been working on her feet a lot. Pt denies any redness or warmth or swelling. knee pain1 Pt has chronic b ilateral knee pain. Pt states that she was told that she is bone to bone on both knee and she used to get Gel injection to both knee Pt has chronic knee pian Pt denies any knee redness or warmth. Pt notices mild swelling sometimes. Pt denies any recent injury. HLp Pt has HLP Pt ta kes zocor. Pt denies any myalgia. anxiety1 Pt has chronic a nxiety and depression Pt takes effexor and doing ok Pt denies any suicidal or homicidal thought Pt denies any crying spells neuropathy1 Pt has chronic n europathy and chronic neck and back pain Pt is seeing pain management Pt takes neurontin and amitriptyline and doing ok Pt denies any worsening pain chronic pain1 Pt has chronic n nadia and back pain with radiculopathy and sciatica and neuropathy symptoms. Pt did see neurosurgery and was told that she needs pain management. Pt was told that she is not surgical candidate. Pt denies any loss of bladder control. Pt takes amitriptyline, neurontin. Pt needs refill of the flexeril KCL Pt has high KCL pt denies any chest palpitation or chest pain pt has not done lab yet Liver Pt denies any ab d pain or any jaundice Pt has not done ultrasound yet . HLP Pt has HLP pt carolina s high tg. pt takes zocor. pt is trying low fat and low carb diet glucose1 Pt has high gluc ose and borderline KCL. Pt denies any polyuria, polydipsia. Pt denies any palpitation or chest pain LFT Pt has borderlin e high LFT Pt denies any abd pain. Pt does NOT have viral hepatitis neuropathy1 Pt has chronic n europathy. pt doing ok with neurontin and also amitriptyline Pt denies any fatigue. physical Pt needs annual physical pt has HLP P takes zocor Pt denies any myalgia pt has chronic neck and back pain pt has radiculopathy and chronic bilateral upper arm itching and numbness Pt has chronic neck and back pain Pt is taking neurontin 300 mg TID and also amitriptyline. Pt just seen neurosurgery and she is not candidate for surgery. Pt was referred to pain management but nobody takes her insurance Pt feels anxious and depression pt denies any suicidal or homicidal thought. Pt denies any crying spells. PT has GERD pt takes nexium daily GERD1 Pt has GERD Pt t akes nexium 40 mg daily and she actually does NOT have Crow. Pt has hyperplastic colon polyp. pt states that she sometimes skips nexium but she has GERD with any spicy food. pt denies any abd pain chronic pain1 Pt has chronic s evere neck and back pain with left arm and left leg neuropathy symptoms Pt denies any claudication. Pt notices left sciatica. NCS is essentially benign except for mild left median nerve neuropathy. Pt denies any loss of bladder control. Pt states that amitriptyline and neurontin are helping slightly neck pain1 Pt c/o chronic n nadia pain with bilateral radiculopathy and left side weakness and bilateral arm itching. Pt had MRi done which showed bulging disc around neck area. Pt does have mild numbness and tingling and some subjective weakness left side. Pt denies any worsening pain back pain1 Pt has chronic l ow back pain with severe left sciatica. Pt feels tingling left leg. pt denies any leg weakness. pt walks with cane now. Pt denies any loss of bladder control. GERD1 Pt is on nexium. Pt has mild crow. Pt has colon polyp and was told benign. Pt denies any GI issue now sciatica1 pt c/o left scia kavitha and burning feeling left leg for 6 weeks. pt has chronic low back pain but the sciatica just started 6 weeks ago. PT denies any loss of bladder control. Pt has DDD on x ray. neck pain1 Pt has chronic n nadia pain with bilateral radiculopathy. Pt denies any arm weakness. Pt does feel some numbness both arm sometimes. Pt denies any injury. Xray showed neuroforaminal stenosis anxiety1 Pt has coitophob ia and she could not tolerate MRi, even with open MRi HLp Pt has HLP. Pt i s on zocor. her lipid profile is normal now. Pt denies any myalgia calcium1 Her ionized calc ium and PTH is normal. A1c Pt has borderlin e A1c. Pt denies any polyuria polydipsia back pain1 Pt has intermitt ent low back pain with recurrent left sciatica. Pt denies any injury. Pt never had x ray done for her back. Pt denies any loss of bladder control. Pt has mild neuropathy symptoms both arm. Pt denies any leg numbness. pt is on neurontin. GERD1 Pt had EGD done. Pt was found to have crow and also erosive esophagitis and hiatal hernia Pt is on nexium 40 mg now Pt states that she still has GERD and she still feels bloated midepigastric area. Pt states that her symptoms slightly improved with nexium. Pt also continues to burp sometimes. Pt still has some reflux symptoms. Pt denies any acute abdominal pain colon polyp1 Pt has colon dyana yp pt was told the polyp benign and she needs to repeat colonoscopy in 5 years Pt denies any Gi bleeding HLP Pt has HLP. Pt h as high cholesterol and high TG pt is off lopid. pt has history of high lipid profile. Pt states that she eats very healthy. Pt does not drink soda but she eats a lot carb and cheese and egg and diary products. glucose1 Pt has high gluc ose Pt denies any polyuria, polydipsia. Pt has mild high calcium. Pt denies any bone pain hand pain1 Pt notices some pain base of middle finger and base of right thumb for several months. Pt denies any injury Pt denies any numbness Pt denies any weakness Pt notices some pain with right middle finger. LFt Pt has mildly hi gh LFT Pt denies any abd pain and she does not drink alcohol glucose1 Pt has mild high glucose Pt denies any polyuria, polydipsia HLP Pt has history o f high TG Pt has changed diet since with low carb and low sweet. Her TG used to be over 600. neck pain1 Pt has chronic n nadia pain with left radiculopathy. pt feels numbness and tingling sometimes. Pt feels shooting pain down from left side of neck sometimes. Pt denies any worsening neck pain. GERD1 Pt has intermitt ent GERd. Pt takes pepcid about 2-3 per week Pt denies any nuasea, vomiting physical Pt needs annual physical. Pt has history of high TG.. Pt has chronic bilateral upper arm tingling and numbness and she has a diagnosis of brachioradial pruritis. Pt has chronic neck pain. Pt c/o left side radiculopathy and she notices left hand numbness and tingling and she has left hand weakness. Pt takes naproxen and also neurontin and doing ok. Pt has intermittent GERD and she takes pepcid PRn. 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 Related to Hy perlipidemia, unspecified Follow a low sodium diet. 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 Related to Hy perlipidemia, unspecified Follow a low sodium diet. Relate d to Hyperlipidemia, unspecified Special diet education Related t o Body mass index (BMI) 26.0-26.9, adult Assessments Type Assessment Date No Information
--- OUTSIDE RECORDS SUMMARY | 2024-07-18 08:48 | XMS_ITS | Patient Health Summary ---
Author Organization [facility] Address [address] [place] [address] Care Team Providers Care Sandblast Or Shotblast Equipment Tender Name Role Phone Cosmo Ruiz MD Primary Care Provider [phone] Note from [facility],non-owned Affiliates and Associated Physician Practices is amultiple site organization consisting of ambulatory clinics and hospital sitesin [place], [place], [place] and [place]. This disclosure is being madepursuant to the Care Everywhere program and may not contain all information available regarding this patient. Last updated 18.[facility] Allergies * Codeine(Anaphylaxis) -High Criticality Medications * Be aware that medications may not be up to date on this document. Alwaysverify current medications with the patient. * cyclobenzaprine (FLEXERIL) 10 MG tablet(Started 05/15/2018) Take 10 mg by mouth as needed * esomeprazole (NEXIUM) 40 MG capsule(Started 02/13/2018) Take 1 capsule by mouth as directed * calcium carbonate - vitamin D (CALCIUM + D3) 600-800 MG-UNIT tablet Take 1 tablet by mouth 2 times daily * multivitamin daily tablet Take 1 tablet by mouth daily with food * naproxen sodium ([employer] NAPROXEN SODIUM) 220 MG tablet Take 220 mg by mouth 2 times daily * Melatonin 10 MG Take 10 mg by mouth at bedtime * niacin CR 500 MG tablet Take 500 mg by mouth at bedtime * simvastatin (ZOCOR) 40 MG tablet(Started 04/19/2020) Take 40 mg by mouth at bedtime * venlafaxine XR 24hr (EFFEXOR XR) 37.5 MG capsule(Started 06/10/2020) Take 37.5 mg by mouth daily with food * amitriptyline (ELAVIL) 25 MG tablet(Started 06/26/2020) Take 25 mg by mouth at bedtime * gabapentin (NEURONTIN) 600 MG tablet(Started 06/26/2020) Take 600 mg by mouth 3 times daily Active Problems Problem Noted Date Diagnosed Date [...] 06/28/2020 Other spondylosis, lumbar region 06/28/2020 Immunizations * INFLUENZA VACCINE, CELL CULTURE, QUADR. (FLUCELVAX QUADRIVALENT; 6MO+) (CCIIV4)(Given 02/17/2020) Social History Tobacco Use Types Packs/Day Years [...] Comments Blood Pressure 126/79 07/09/2020 9:50 AM DIRECTOR TOXICOLOGY Pulse 100 07/09/2020 9:50 AM DIRECTOR TOXICOLOGY Temperature 36.7 C (98 F) 07/09/2020 9:50 AM DIRECTOR TOXICOLOGY Respiratory Rate 16 07/09/2020 9:50 AM DIRECTOR TOXICOLOGY Oxygen Saturation 100% 07/09/2020 9:50 AM DIRECTOR TOXICOLOGY Inhaled Oxygen Concentration - - Weight 74.8 kg (165 lb) 07/09/2020 9:50 AM DIRECTOR TOXICOLOGY Height 170.2 cm (5' 7 ) 07/09/2020 9:50 AM DIRECTOR TOXICOLOGY Body Mass Index 25.84 07/09/2020 9:50 AM DIRECTOR TOXICOLOGY Procedures * IA DRAIN/INJECT LARGE JOINT/BURSA(Performed 07/10/2020) Performed for Bilateral primary osteoarthritis of knee * IA DRAIN/INJECT LARGE JOINT/BURSA(Performed 07/10/2020) Performed for Bilateral primary osteoarthritis of knee * XR KNEE RIGHT 4VW OR MORE(Performed 07/09/2020) Performed for Right knee pain, unspecified chronicity * XR KNEE LEFT 4VW OR MORE(Performed 07/09/2020) Performed for Left knee pain, unspecified chronicity Results * IA DRAIN/INJECT LARGE JOINT/BURSA (07/10/2020 4:05 PM DIRECTOR TOXICOLOGY) Josue Castro III, MD - 07/10/2020 4:05 PM DIRECTOR TOXICOLOGY Josue Spangler III, MD 07/10/2020 4:07 PM After discussion of risks, benefits, and alternatives, the patient agreed to corticosteroid injection. The area was marked and cleaned in the usual sterile fashion using Betadine and alcohol. Ethyl chloride for topical anesthesia. The injection was performed at the left superolateral knee using 0.5% ropivacaine and 40 mg of Kenalog. This was well tolerated. Josue Spangler III, MD PROCEDURE/MIN OR SURGICAL ORDERABLES * IA DRAIN/INJECT LARGE JOINT/BURSA (07/10/2020 4:04 PM DIRECTOR TOXICOLOGY) Josue Castro III, MD - 07/10/2020 4:04 PM DIRECTOR TOXICOLOGY Josue Spangler III, MD 07/10/2020 4:07 PM After discussion of risks, benefits, and alternatives, the patient agreed to corticosteroid injection. The area was marked and cleaned in the usual sterile fashion using Betadine and alcohol. Ethyl chloride for topical anesthesia. The injection was performed at the right superolateral knee using 0.5% ropivacaine and 40 mg of Kenalog. This was well tolerated. Josue Spangler III, MD PROCEDURE/MIN OR SURGICAL ORDERABLES * XR KNEE RIGHT 4VW OR MORE (07/09/2020 10:02 AM DIRECTOR TOXICOLOGY) Anatomical Region Laterality Modality Lower Extremity Radiographic Mya ging 07/09/2020 10:3 9 AM DIRECTOR TOXICOLOGY Impressions 07/09/2020 11:36 AM DIRECTOR TOXICOLOGY IMPRESSION: 1.Small right knee effusion. 2.No acute osseous abnormality of either knee. Dictated by Anshul Polanco MD (founder and president). I, Dr. LEDA WALLS have personally reviewed and interpreted this examination/study. This report was electronically signed by LEDA WALLS on 07/09/2020 11:36 AM . Narrative 07/09/2020 11:36 AM DIRECTOR TOXICOLOGY EXAMINATION: XR KNEE RIGHT 4VW OR MORE, XR KNEE LEFT 4VW OR MORE HISTORY: Bilateral knee pain, unspecified chronicity COMPARISON: No prior study is available for comparison. FINDINGS: Right knee: There is no fracture or dislocation. The knee joint space is preserved. A small joint effusion is seen. No soft tissue swelling is present. Left knee: There is no fracture or dislocation. The knee joint space is preserved. No joint effusion is seen. No soft tissue swelling is present. Procedure Note Leda Walls MD - 07/09/2020 EXAMINATION: XR KNEE RIGHT 4VW OR MORE, XR KNEE LEFT 4VW OR MORE HISTORY: Bilateral knee pain, unspecified chronicity COMPARISON: No prior study is available for comparison. FINDINGS: Right knee: There is no fracture or dislocation. The knee joint space is preserved.A small joint effusion is seen. No soft tissue swelling is present. Left knee: There is no fracture or dislocation. The knee joint space is preserved.No joint effusion is seen. No soft tissue swelling is present. IMPRESSION: 1.Small right knee effusion. 2.No acute osseous abnormality of either knee. Dictated by Anshul Polanco MD (founder and president). Dr. LEDA Carmen have personally reviewed and interpreted this examination/study. This report was electronically signed by LEDA WALLS on 07/09/2020 11:36 AM . Josue Spangler III, MD DIAGNOSTIC IM AGING ORDERABLES * XR KNEE LEFT 4VW OR MORE (07/09/2020 10:02 AM DIRECTOR TOXICOLOGY) Anatomical Region Laterality Modality Lower Extremity Radiographic Mya ging 07/09/2020 10:3 9 AM DIRECTOR TOXICOLOGY Impressions 07/09/2020 11:36 AM DIRECTOR TOXICOLOGY IMPRESSION: 1.Small right knee effusion. 2.No acute osseous abnormality of either knee. Dictated by Anshul Polanco MD (founder and president). Dr. LEDA Carmen have personally reviewed and interpreted this examination/study. This report was electronically signed by LEDA WALLS on 07/09/2020 11:36 AM . Narrative 07/09/2020 11:36 AM DIRECTOR TOXICOLOGY EXAMINATION: XR KNEE RIGHT 4VW OR MORE, XR KNEE LEFT 4VW OR MORE HISTORY: Bilateral knee pain, unspecified chronicity COMPARISON: No prior study is available for comparison. FINDINGS: Right knee: There is no fracture or dislocation. The knee joint space is preserved. A small joint effusion is seen. No soft tissue swelling is present. Left knee: There is no fracture or dislocation. The knee joint space is preserved. No joint effusion is seen. No soft tissue swelling is present. Procedure Note Leda Walls MD - 07/09/2020 EXAMINATION: XR KNEE RIGHT 4VW OR MORE, XR KNEE LEFT 4VW OR MORE HISTORY: Bilateral knee pain, unspecified chronicity COMPARISON: No prior study is available for comparison. FINDINGS: Right knee: There is no fracture or dislocation. The knee joint space is preserved.A small joint effusion is seen. No soft tissue swelling is present. Left knee: There is no fracture or dislocation. The knee joint space is preserved.No joint effusion is seen. No soft tissue swelling is present. IMPRESSION: 1.Small right knee effusion. 2.No acute osseous abnormality of either knee. Dictated by Anshul Polanco MD (founder and president). Dr. LEDA Carmen have personally reviewed and interpreted this examination/study. This report was electronically signed by LEDA WALLS on 07/09/2020 11:36 AM . Josue Spangler III, MD DIAGNOSTIC IM AGING ORDERABLES Care Teams Sandblast Or Shotblast Equipment Tender Relationship Specialty Start Date End Date Cosmo Ruiz MD PCP - General 06/25/20
--- OUTSIDE RECORDS SUMMARY | 2024-07-18 08:48 | XMS_ITS | Clinical Summary ---
Author Organization [facility] Address [address] [place] [address] Care Team Providers Care Mainspring Winder And Oiler Name Role Phone Cosmo Ruiz MD Primary Care Provider [phone] Source Comments [facility],non-owned Affiliates and Associated Physician Practices is amultiple site organization consisting of ambulatory clinics and hospital sitesin [place], [place], [place] and [place]. This disclosure is being madepursuant to the Care Everywhere program and may not contain all information available regarding this patient. Last updated 18.[facility] Allergies Active Allergy Reactions Criticality Noted Date [...] Comments Blood Pressure 126/79 07/09/2020 9:50 AM FARM IMPLEMENT MECHANIC Pulse 100 07/09/2020 9:50 AM FARM IMPLEMENT MECHANIC Temperature 36.7 C (98 F) 07/09/2020 9:50 AM FARM IMPLEMENT MECHANIC Respiratory Rate 16 07/09/2020 9:50 AM FARM IMPLEMENT MECHANIC Oxygen Saturation 100% 07/09/2020 9:50 AM FARM IMPLEMENT MECHANIC Inhaled Oxygen Concentration - - Weight 74.8 kg (165 lb) 07/09/2020 9:50 AM FARM IMPLEMENT MECHANIC Height 170.2 cm (5' 7 ) 07/09/2020 9:50 AM FARM IMPLEMENT MECHANIC Body Mass Index 25.84 07/09/2020 9:50 AM FARM IMPLEMENT MECHANIC Plan of Treatment Health Maintenance Due Date Last Done Comments COLOGUARD (AGES 45-75) - COL ON CA SCREENING 1964 COLON MONITORING 1964 COLONOSCOPY - COLON CA SCREENING 1964 CT COLONOGRAPHY - COLON CA SCREENING 1964 Colorectal Cancer Screening 1964 FIT - COLON CA SCREENING 1964 FLEX SIG - COLON CA SCREENING 1964 MAMMOGRAM 1964 PAP SMEAR 1964 HIV SCREENING 12/10/1979 HEPATITIS C SCREENING 12/05/1982 DTAP/TDAP/TD VACCINES (1 - Tdap) 12/10/1983 HEPATITIS B VACCINE (1 of 3 - 19+ 3-dose series) 12/10/1983 PNEUMOCOCCAL VACCINE 50+ (1 of 1 - PCV) 2014 ZOSTER VACCINE (1 of 2) 2014 SCREENING FOR DIABETES 07/09/2020 COVID-19 VACCINE (1 - 2023-2 5 season) 2024 INFLUENZA VACCINE (#1) 2024 02/17/2020 DEPRESSION SCREENING 05/28/2024 HIB VACCINE Aged Out No longer eligi ble based on patient's age to complete this topic HPV VACCINE Aged Out No longer eligi ble based on patient's age to complete this topic MENINGOCOCCAL (Group B) VACCINE Aged Out No longer eligible based on patient's age to complete this topic MENINGOCOCCAL VACCINE Aged Out No yaya mathew eligible based on patient's age to complete this topic PNEUMOCOCCAL VACCINE Aged Out No long er eligible based on patient's age to complete this topic Care Teams Mainspring Winder And Oiler Relationship Specialty Start Date End Date Cosmo Ruiz MD PCP - General 06/25/20
== END 2024-07-18 08:32 | disposition home or self-care (01) ==
PROVIDERS: Visit Provider Physician Assistant Surgical
DX: S63.642A Sprain of metacarpophalangeal joint of left thumb, initial encounter (principal); M18.12 Unilateral primary osteoarthritis of first carpometacarpal joint, left hand; X58.XXXA Exposure to other specified factors, initial encounter
CPT/HCPCS: 73130

== ENCOUNTER 2024-09-10 13:17 | Emergency (ER) | payer BC, SELFPAY ==
--- NOTE | 2024-09-10 13:18 | ED.URI ---
HPI - URI/Sore Throat General Chief Complaint: Upper Respiratory Infection Stated Complaint: SINUS Time Seen by Provider: 09/10/24 13:18 Source: patient Mode of arrival: ambulatory Limitations: no limitations History of Present Illness HPI Narrative: Mini is a 58-year-old female patient presenting to the clinic today with complaints of sinus congestion x1 week. Is having sinus pressure and nasal drainage going on back of her throat. Has slight cough. No known fevers but does have some chills. Denies any color to the nasal drainage. No shortness of breath or chest pain. Related Data Home Medications ?Medication ?Instructions ?Recorded ?Confirmed ?Last Taken ?Type multivitamin with minerals 1 tablet PO DAILY 06/30/21 06/11/24 06/08/24 History ascorbic acid 125 mg-collagen, 1 cap PO DAILY 06/01/23 06/11/24 06/08/24 History hydrolyzed 740 mg capsule (Collagen Plus Vitamin C) esomeprazole magnesium 20 mg 20 mg PO DAILY 06/01/23 06/11/24 06/10/24 History capsule,delayed release (Nexium) melatonin 10 mg capsule 10 mg PO QHS 06/01/23 06/11/24 06/10/24 History naproxen sodium 220 mg capsule 220 mg PO BID PRN Mild Pain (Scale 06/01/23 06/11/24 06/08/24 History Score 1-4) niacin 500 mg tablet 500 mg PO DAILY 06/01/23 06/11/24 06/08/24 History vitamin B complex 1 tablet PO DAILY 06/01/23 06/11/24 06/08/24 History cyclobenzaprine 10 mg tablet 10 mg PO DAILY PRN spasms 01/31/24 06/11/24 06/10/24 History calcium 600 mg (as 1 tablet PO DAILY 06/04/24 06/11/24 06/08/24 History carbonate)-vitamin D3 10 mcg (400 unit) tablet (Calcium 600 + D(3)) Allergies Allergy/AdvReac Type Severity Reaction Status Date / Time codeine AdvReac Mild Headache Verified 09/10/24 13:28 Review of Systems Review of Systems: Pertinent positives per HPI. Patient denies any fever, chills, rash, headache, visual changes, dizziness, shortness of breath, chest pain, palpitations, nausea, vomiting, diarrhea, constipation, abdominal pain, or any urinary issues. [facility] Past Medical History Medical History Carpal tunnel syndrome on both sides Darvin's thyroiditis Arthritis Pain, postoperative, acute GERD (gastroesophageal reflux disease) Hyperlipidemia Surgical History Surgical History History of removal of ovarian cyst History of hysterectomy History of cholecystectomy Family History Family History Father Alcoholism Depression Mother Thyroid condition Sibling Carcinoma of colon Son Alcoholism Grandparent Heart problem Social History Social History Social History: Caffeine-coffee Years smoked: 10 Smoking status: Former smoker Tobacco type: cigarettes Smoking end date: 06/04/06 Alcohol intake: current Drinks per week: 5 Alcohol use details: wine Substance use: current Substance use type: marijuana Other substance usage details: THC gummy every once in awhile in evening. Do You Feel Safe in your Home?: Yes Lack of Transportation: No Lack of Food: Never True Current Housing: I Have Housing Concerned About Future Housing: No Difficulty Paying Gas/Electric Bills: No Difficulty Paying for Meds: No Currently Unemployed: No Education: High School Diploma/GED Difficulty w/ Childcare or Family Care: No Living arrangements: with family Spiritual care concerns: No Comments At the time of my signature, I reviewed and agree with the nursing past medical, surgical, social, and family history. There is no relevant family history pertinent to the patient complaint. Exam Narrative: General: Well-developed, well nourished, in no apparent distress Head: Normocephalic, atraumatic Eyes: Pupils equally round and reactive to light bilaterally, EOM intact, sclera and conjunctive clear, no discharge, lids normal Ears: TMs intact and clear, ear canals clear, no drainage, grossly hearing normal. Nose: Nares patent, no discharge, no inflammation, no sinus tenderness. Mouth: Oral pharynx without lesions or masses, good dentition, MMM. Neck: Supple, trachea midline, no enlargement of anterior or posterior cervical nodes, no thyroid masses or goiter palpable. Cardio: Regular rate and rhythm, s1 and s2 normal, no murmur appreciated. Resp: Clear to auscultation bilaterally, no rhonchi, rales, wheezing or rubs Course Course Emergency Course: Portions of this record may have been created with voice recognition software. Level of Care: Express Care Visit Vital Signs Vital signs: Vital signs reviewed MDM - URI/Sore Throat MDM Narrative Medical decision making narrative: At the time of visit patient is resting comfortably on the exam table. Patient appears to be nontoxic. Plan: I suspect patient has viral sinusitis. Prescription for prednisone was sent to the pharmacy. Supportive measures were discussed with the patient and they voiced understanding discharge instructions and agrees to treatment plan. Return precautions reviewed Differential Diagnosis Differential diagnosis: Likely upper respiratory infection, otitis media, sinusitis, viral infection, bronchitis, influenza, pharyngitis and other (COVID) Discharge Plan Discharge Clinical Impression: Acute viral sinusitis Patient Disposition: Home Condition: Stable Instructions: Antibiotic Form, Sinusitis (ED) Additional Instructions: Take prescription medications only as prescribed-prednisone Increase fluids and stay well hydrated Tylenol/motrin for pain/fever Flonase and OTC antihistamines as directed Vicks vapor rub to open sinuses Sinus rinses for congestion Cepacol spray, cough drops, throat lozenges, warm tea with honey/lemon, gargle salt water to soothe throat BRAT diet for diarrhea Clear liquids x 24 hours then advance as tolerated for nausea/vomiting Go to the ED if you develop a worsening in your condition- high fever not controlled by Tylenol or Motrin, dehydration, weakness, lethargy, shortness of breath, or chest pain. Follow up with your PCP in 3-5 days if symptoms persist. Patient Language: Wolof Prescriptions: New prednisone 20 mg tablet 40 mg PO DAILY 5 Days Qty: 10 0RF No Action cyclobenzaprine 10 mg tablet 10 mg PO DAILY PRN (Reason: spasms) amitriptyline 25 mg tablet 25 mg PO BID Qty: 180 3RF venlafaxine 37.5 mg capsule,extended release 24hr 37.5 mg PO HS Qty: 90 3RF rosuvastatin 10 mg tablet 10 mg PO HS Qty: 90 3RF levothyroxine 50 mcg tablet 50 mcg PO DAILY Qty: 90 3RF esomeprazole magnesium [Nexium] 20 mg capsule,delayed release(DR/EC) 20 mg PO DAILY melatonin 10 mg capsule 10 mg PO QHS niacin 500 mg tablet 500 mg PO DAILY vitamin B complex Tablet 1 tablet PO DAILY Collagen Plus Vitamin C 125-740 mg capsule 1 cap PO DAILY naproxen sodium 220 mg capsule 220 mg PO BID PRN (Reason: Mild Pain (Scale Score 1-4)) multivitamin with minerals Tablet 1 tablet PO DAILY calcium carbonate-vitamin D3 [Calcium 600 + D(3)] 600 mg-10 mcg (400 unit) tablet 1 tablet PO DAILY cephalexin 500 mg capsule 500 mg PO Q8H Qty: 21 0RF tramadol 50 mg tablet 50 mg PO Q6H PRN (Reason: pain) Qty: 12 0RF gabapentin 600 mg tablet 600 mg PO TID Qty: 90 1RF Follow-up/Referrals: Mariam Dominguez MD [Primary Care Provider] - Time of Disposition: 13:30 Quality NIHSS Nursing Documentation ED NIHSS nursing documentation: reviewed/agree
[2024-09-10 13:24] VITALS: BP 108/82; PULSE 97; RESP 16; TEMP 36.3; O2SAT 99
== END 2024-09-10 13:35 | disposition home or self-care (01) ==
PROVIDERS: Emergency Provider Nurse Practitioner Family; PCP Family Medicine
DX: J01.90 Acute sinusitis, unspecified (principal); E06.3 Autoimmune thyroiditis; E78.5 Hyperlipidemia, unspecified; K21.9 Gastro-esophageal reflux disease without esophagitis; M19.90 Unspecified osteoarthritis, unspecified site; F12.90 Cannabis use, unspecified, uncomplicated; Z87.891 Personal history of nicotine dependence
CPT/HCPCS: 99213; G0463

== ENCOUNTER 2024-10-09 08:34 | Outpatient (CLI) | payer BC, SELFPAY ==
--- OUTSIDE RECORDS SUMMARY | 2024-10-09 08:38 | XMS_ITS | Clinical Summary ---
Author Organization [facility] [employer] Address [address] [place] [address] Care Team Providers Care Unemployment Insurance Director Name Role Phone Cosmo Ruiz MD Primary Care Provider [phone] Source Comments [facility] [employer],non-owned Affiliates and Associated Physician Practices is amultiple site organization consisting of ambulatory clinics and hospital sitesin [place], [place], [place] and [place]. This disclosure is being madepursuant to the Care Everywhere program and may not contain all information available regarding this patient. Last updated 18.[facility] [employer] Allergies Active Allergy Reactions Criticality Noted Date Comments Codeine Anaphylaxis High 10/02/2017 Medications * Be aware that medications may not be up to date on this document. Alwaysverify current medications with the patient. cyclobenzaprine (FLEXERIL) 10 MG tablet Take 10 [...] 06/28/2020 Other spondylosis, lumbar region 06/28/2020 Immunizations Immunization Administration Dates Next Due INFLUENZA VACCINE, CELL CULT URE, QUADR. (FLUCELVAX QUADRIVALENT; 6MO+) (CCIIV4) 02/17/2020 Social History Tobacco Use Types Packs/Day Years Used Date Smoking Tobacco: Former Cigarettes Q uit: 2007 Smokeless Tobacco: Never Alcohol Use Standard Drinks/Week Comments Yes 7 (1 standard drink = 0.6 oz pur e alcohol) Comments Unknown Sex and Gender Information Value Date Recorded Sex Assigned at Not on file Legal Sex Female 9:19 AM CDT Gender Identity Not on file Sexual Orientation Not on file Last Filed Vital Signs Vital Sign Reading Time Taken Comments Blood Pressure 126/79 07/09/2020 9:50 AM [employer] Pulse 100 07/09/2020 9:50 AM [employer] Temperature 36.7 C (98 F) 07/09/2020 9:50 AM MCAT T[employer]OR Respiratory Rate 16 07/09/2020 9:50 AM MCAT T[employer]OR Oxygen Saturation 100% 07/09/2020 9:50 AM MCAT T[employer]OR Inhaled Oxygen Concentration - - Weight 74.8 kg (165 lb) 07/09/2020 9:50 AM MCAT T[employer]OR Height 170.2 cm (5' 7 ) 07/09/2020 9:50 AM MCAT T[employer]OR Body Mass Index 25.84 07/09/2020 9:50 AM MCAT T[employer]OR Plan of Treatment Health Maintenance Due Date Last Done Comments COLOGUARD (AGES 45-75) - COL ON CA SCREENING 1964 COLON MONITORING 1964 COLONOSCOPY - COLON CA SCREENING 1964 CT COLONOGRAPHY - COLON CA SCREENING 1964 Colorectal Cancer Screening 1964 FIT - COLON CA SCREENING 1964 FLEX SIG - COLON CA SCREENING 1964 MAMMOGRAM 1964 HIV SCREENING 12/10/1979 HEPATITIS C SCREENING 12/05/1982 DTAP/TDAP/TD VACCINES (1 - Tdap) 12/10/1983 HEPATITIS B VACCINE (1 of 3 - 19+ 3-dose series) 12/10/1983 PNEUMOCOCCAL VACCINE 50+ (1 of 1 - PCV) 2014 ZOSTER VACCINE (1 of 2) 2014 SCREENING FOR DIABETES 07/09/2020 COVID-19 VACCINE (1 - 2023-2 5 season) 2024 DEPRESSION SCREENING 05/28/2024 INFLUENZA VACCINE (Season Ended) 2025 02/17/20 20 HIB VACCINE Aged Out No longer eligi ble based on patient's age to complete this topic HPV VACCINE Aged Out No longer eligi ble based on patient's age to complete this topic MENINGOCOCCAL (Group B) VACC INE SHARED DECISION-MAKING Aged Out No longer eligibl e based on patient's age to complete this topic MENINGOCOCCAL GROUPS A/C/Y/W VACCINE Aged Out No longer eligible b ased on patient's age to complete this topic Insurance [facility] Care Teams Unemployment Insurance Director Relationship Specialty Start Date End Date Cosmo Ruiz MD PCP - General 06/25/20
--- OUTSIDE RECORDS SUMMARY | 2024-10-09 08:39 | XMS_ITS | Continuity of Care Document ---
Author Organization [facility] Address [address] [facility] [place] [address] [place] [address] Phone Care Team Providers Care Glycerin Supervisor Name Role Phone Cosmo Ruiz MD Unavailable Unavailable Allergies, Adverse Reactions, Alerts Substance Reaction Status Criticality codeine Active No Information Medications Medication Instructions Dosage Effective Dates (start - stop) Status Comments Synthroid 50 mcg tablet take 1 tablet by oral route every day 50 MCG - Active amitriptyline 25 mg tablet take 1 tablet by oral route 2 times every day 25 MG - Active avoid driving or operate machines Neurontin 600 mg tablet take 1 tablet by oral route 3 times every day 600 MG - Active avoid driving or operate machines Effexor XR 37.5 mg capsule,extended release take 1 capsule by oral route every day with food 37.5 MG - Active Crestor 10 mg tablet take 1 tablet by oral route every day 10 MG - Active Nexium 40 mg capsule,delayed [...] Diagnoses Date Provider Providers Copied on Encounter [facility], [address] [place], [place], [id number], tel:[phone] [facility] No Information 3 Joseph Man [address], [place], [address] , [place]. tel:[phone] OFFICE/OUTPA TIENT VISIT, [facility], [place], [facility], [address] [place], [address], [place] tel:[phone] [facility] hashimoto1 (chief complaint) neuropathy 1 (chief complaint) diverticul osis1 (chief complaint) fatty liver1 (chief complaint) Fatty liverHashimoto's thyroiditisIdiopath ic progressive neuropathyDiverticu losis of intestine without abscess without bleedingOther specified disorder of bone densityInconclusive mammogram 3 Joseph Man [address], [address] , [place]. tel:[phone] OFFICE/OUTPA TIENT VISIT, [facility] [place], [address], [address], [place] tel:[phone] [facility] liver disease1 (chief complaint) colon1 (chief complaint) bone (chief complaint) spot (chief complaint) Liver diseaseOther specified disorder of bone densityPolyp of colonEczema 3 Joseph Man [address], [place], [place], [address] , [place]. tel:[phone] OFFICE/OUTPA TIENT VISIT, EST [facility], [address], [place], [place], [address], [place] tel:[phone] [facility] UTI1 (chief complaint) HLP (chief complaint) LFT (chief complaint) Acute cystitis without hematuriaMixed hyperlipidemiaLiver disease 0 3 Joseph Man [address], [place], [place], [address] , [place]. tel:[phone] PREV VISIT, EST, AGE 40-64 [facility], [address], [place], [place], [address], [place] tel:[phone] [facility] physical (chief complaint) Encounter for general adult medical examination without abnormal findings 3 Joseph Wilburn. [address], [place], [place], [address] , [place]. tel:[phone] OFFICE/OUTPA TIENT VISIT, EST [facility], [address], [place], [place], [address], [place] tel:[phone] [facility] hashimoto1 (chief complaint) back pain1 (chief complaint) neuropathy 1 (chief complaint) Kerline's thyroiditisEncounte r for oth screening for malignant neoplasm of breastOther spondylosis, lumbar regionIdiopathic progressive neuropathy 2 Joseph Man [address], [place], [place], [address] , [place]. tel:[phone] OFFICE/OUTPA TIENT VISIT, EST [facility], [address], [place], [place], [address], [place] tel:[phone] [facility] hashimoto1 (chief complaint) Kerline's thyroiditis 2 Joseph Wilburn. [address], [place], [place], [address] , [place]. tel:[phone] OFFICE/OUTPA TIENT VISIT, EST [facility], [address], [place], [place], [address], [place] tel:[phone] [facility] Medicine hashimoto1 (chief complaint) HLP (chief complaint) UTI1 (chief complaint) HyperlipidemiaHashi gwen's thyroiditisUrinary tract infection 2 Joseph Wilburn. [address], [place], [place], [address] , [place]. tel:[phone] OFFICE/OUTPA TIENT VISIT, EST [facility], [address], [place], [place], [address], [place] tel:[phone] [facility] UTI1 (chief complaint) glucose1 (chief complaint) HLP (chief complaint) thyroid1 (chief complaint) foot pain1 (chief complaint) Hyperlipidemia, unspecifiedHypothyr oidismHyperglycemia Urinary tract infectionEncounter for screening for malignant neoplasm of colonPain in unspecified foot 2 Joseph Man [address], [place], [place], [address] , [place]. tel:[phone] PREV VISIT, EST, AGE 40-64 [facility], [address], [place], [place], [address], [place] tel:[phone] [facility] physical (chief complaint) Encounter for general adult medical examination without abnormal findings 2 Joseph Wilburn. [address], [place], [place], [address] , [place]. tel:[phone] OFFICE/OUTPA TIENT VISIT, EST [facility], [address], [place], [place], [address], [place] tel:[phone] [facility] Medicine HLp (chief complaint) anxiety1 (chief complaint) neuropathy 1 (chief complaint) knee pain1 (chief complaint) Generalized Anxiety DisorderNeuropathyL iver diseaseHyperlipidem iaPain in unspecified knee 1 Joseph Man [address], [place], [place], [address] , [place]. tel:[phone] OFFICE/OUTPA TIENT VISIT, EST [facility], [address], [place], [place], [address], [place] tel:[phone] [facility] chronic pain1 (chief complaint) KCL (chief complaint) Liver (chief complaint) HyperkalemiaNeuropa thyLiver diseaseChronic pain syndrome 0 Joseph Man [address], [place], [place], [address] , [place]. tel:[phone] OFFICE/OUTPA TIENT VISIT, EST [facility], [address], [place], [place], [address], [place] [phone] [facility] HLP (chief complaint) glucose1 (chief complaint) LFT (chief complaint) neuropathy 1 (chief complaint) HyperglycemiaLiver diseaseHyperkalemia Generalized Anxiety DisorderNeuropathyH yperlipidemia 0 Joseph Man [address], [place], [place], [address] , [place]. [phone] Referring Provider: Jefry [address], [place], [place], [address]. tel:[phone] PREV VISIT, EST, AGE 40-64 [facility], [address], [place], [place], [address], [place] tel:[phone] [facility] physical (chief complaint) Encntr for general adult medical exam w/o abnormal findings 9 Joseph Man [address], [place], [place], [address] , [place]. tel:[phone] OFFICE/OUTPA TIENT VISIT, EST [facility], [address], [place], [place], [address], [place] tel:[phone] [facility] GERD1 (chief complaint) chronic pain1 (chief complaint) GERD w/o esophagitisNeuropat hyChronic pain syndrome 9 Joseph Man [address], [place], [place], [address] , [place]. tel:[phone] Referring Provider: Jefry [address], [place], [place], [address]. tel:[phone] OFFICE/OUTPA TIENT VISIT, [facility] [place], [address], [place], [place], [address], [place] tel:[phone] [facility] neck pain1 (chief complaint) back pain1 (chief complaint) GERD1 (chief complaint) Other spondylosis, cervical regionOther spondylosis, lumbar regionBarrett's esophagus without dysplasiaLumbago with sciatica, left side 9 Joseph Wilburn. [address], [place], [place], [address] , [place]. tel:[phone] Referring Provider: Jefry [address], [place], [place], [address]. tel:[phone] OFFICE/OUTPA TIENT VISIT, [facility] [place], [address], [place], [place], [address], [place] tel:[phone] [facility] sciatica1 (chief complaint) neck pain1 (chief complaint) anxiety1 (chief complaint) Other spondylosis, cervical regionOther spondylosis, lumbar regionGeneralized Anxiety Disorder 9 Joseph Wilburn. [address], [place], [place], [address] , [place]. tel:[phone] Referring Provider: Jefry [address], [place], [place], [address]. tel:[phone] OFFICE/OUTPA TIENT VISIT, [facility] [place], [address], [place], [place], [address], [place] tel:[phone] [facility] HLp (chief complaint) calcium1 (chief complaint) A1c (chief complaint) back pain1 (chief complaint) HypercalcemiaHyperg lycemiaPolyp of colonChronic pain syndromeHyperlipide shira 8 Joseph Man [address], [place], [place], [address] , [place]. tel:[phone] Referring Provider: Jefry Kay [facility] [address], [place], [place], [address]. tel:[phone] OFFICE/OUTPA TIENT VISIT, [facility] [place], [address] [place] [address] [place], [address], tel:[phone] [facility] GERD1 (chief complaint) colon polyp1 (chief complaint) HLP (chief complaint) glucose1 (chief complaint) hand pain1 (chief complaint) Crow's esophagus without dysplasiaPolyp of colonHyperlipidemia HypercalcemiaTrigge r finger, right middle finger Sep- 8 Joseph Wilburn. [address] [facility] [address], [place], [place], [address] , [place]. tel:[phone] Referring Provider: Jefry Kay [facility] [address], [place], [place], [address]. tel:[phone] OFFICE/OUTPA TIENT VISIT, [facility] [place], [facility] [address] [place] [place], [address], [place] tel:[phone] [facility] LFt (chief complaint) glucose1 (chief complaint) HLP (chief complaint) neck pain1 (chief complaint) GERD1 (chief complaint) Hyperlipidemia, unspecifiedHypergly cemiaLiver diseaseGERD w/o esophagitisRadiculo ellen, cervical regionInconclusive mammogram 8 Joseph [facility], [place], [place], [address] , [place]. [phone] Referring Provider: Jefry [address], [place], [place], [address]. tel:[phone] PREV VISIT, NEW, AGE 40-64 [facility], [address] [facility] [place], [address], [place] tel:[phone] [facility] physical (chief complaint) Encounter for general adult medical exam w abnormal findingsHyperlipide shira, unspecifiedGastro-e sophageal reflux disease without esophagitisRadiculo ellen, cervical region [address], [place], [place], [address] , . tel:[phone] Referring Provider: Jefry Kay [facility] A, [place], [place], [address]. tel:[phone] Family History Family Member Type Diagnosis Age At Onset Mother Problem (finding) Alive and well Brother Problem (finding) colon CA 57 Brother Problem (finding) Alive and well Father Problem (finding) cirrhosis from alcohol 55 Payers Payer name Insurance type Covered alliance party ID Authoriza tion(s) No Information Social History [...] -Podiatric Medicine & Surgery Service Providers : Hogshead Liner (related to Encounter for general adult medical examination without abnormal findings) ordered Referral Ordered: FOOT XRAY, TWO VIEW Bilateral ordered Referral Referred To: IHSAN NANCE [address] [facility] [place], [place], [id number] Ordered: Referrals: Podiatric Medicine & Surgery Service Providers : Hogshead Liner. IHSAN NANCE. Evaluate and treat ordered Referral Ordered: Yvan Salazar -Allopathic & Osteopathic Physicians : Orthopaedic Surgery (related to Pain in unspecified knee) ordered Referral Referred To: Yvan Salazar [address] [place], [place], [phone] Ordered: Referrals: Allopathic & Osteopathic Physicians : Orthopaedic Surgery. Yvan Salazar. Evaluate and treat ordered Referral Ordered: Pain Medicine (related to Chronic pain syndrome) ordered Referral Ordered: Referrals: Pain Medicine. Evaluate and treat ordered Referral Ordered: US EXAM, ABDOM, COMPLETE ordered Referral Referred To: Hernan Young MD [address]
[place], [address] Ordered: Referrals: Hernan Young MD. Evaluate and [...] finger) ordered Referral Referred To: Booker Tay [address] [place], [place] [id number] Ordered: Referrals: Allopathic & Osteopathic Physicians : [...] foot x ray. Pt has carin with supervisor hydrochloric area next week. Pt denies any injury. physical [...] pt denies any injury. Pt works at [employer] and she has been working on her [...]
[2024-10-09 19:20] LABS: Basophils Percent Auto 0.4 % (0.2-1.2); Eosinophils Absolute Auto 0.1 K/mm3 (0-0.3); Eosinophils Percent Auto 2.8 % (0-4.4); Hematocrit 38.6 % (37.0-47.0); Hemoglobin 12.4 g/dL (12.0-15.0); Immature Granulocyte Absolute 0.01 K/mm3 (0.00-0.031); Immature Granulocyte Percent A 0.2 % (0-0.5); Lymphocytes Absolute Auto 2.39 K/mm3 (0.9-3.2); Lymphocytes Percent Auto 47.7 % (18.3-44.2); Mean Corpuscular HGB Conc 32.1 g/dl (32-36); Mean Corpuscular Hemoglobin 31.4 pg (26-34); Mean Corpuscular Volume 97.7 fl (80-100); Mean Platelet Volume 9.1 fl (7.4-10.4); Monocytes Absolute Auto 0.3 K/mm3 (0.1-0.6); Monocytes Percent Auto 6.6 % (2.6-8.5); Neutrophils Absolute Auto 2.1 K/mm3 (1.3-6.7); Neutrophils Percent Auto 42.3 % (45.5-73.1); Platelet Count Result 289 k/mm3 (150-375); Red Blood Count 3.95 M/mm3 (4.2-5.4); Red Cell Distribution Width 14.6 % (11.5-14.5)
[2024-10-09 19:21] LABS: Alanine Aminotransferase 34 U/L (6-35); Albumin Level 4.4 g/dL (3.5-5.1); Alkaline Phosphatase 45 U/L (38-126); Anion Gap 8 mmol/L (4-12); Aspartate Amino Transferase 46 U/L (14-36); Bilirubin,Total 0.2 mg/dL (0.2-1.3); Blood Urea Nitrogen 21 mg/dL (7-17); Calcium 9.5 mg/dL (8.4-10.2); Carbon Dioxide 30 mmol/L (22-30); Chloride 101 mmol/L (98-107); Cholesterol 168 mg/dL (0-200); Estimated Glomerular Filt Rate > 60; Glucose 87 mg/dL (65-110); HDL Direct 77 mg/dL; Potassium 5.7 mmol/L (3.4-5.0); Sodium 139 mmol/L (137-145); Triglycerides 136 mg/dL (<150)
[2024-10-09 19:33] LABS: LDL Cholesterol Direct 49 mg/dL
[2024-10-09 20:38] LABS: Free T4 Free Thyroxine 0.57 ng/dL (0.78-2.19); Vitamin D 25 Hydroxy 62.9 ng/mL
[2024-10-09 22:32] LABS: Hemoglobin A1C 5.3 % (<5.7)
== END 2024-10-09 08:35 | disposition home or self-care (01) ==
LOC: ANHGOSHLAB 08:35
PROVIDERS: PCP Nurse Practitioner Family; Visit Provider Nurse Practitioner Family
DX: E03.9 Hypothyroidism, unspecified (principal); R73.03 Prediabetes; I10 Essential (primary) hypertension; E55.9 Vitamin D deficiency, unspecified; E78.5 Hyperlipidemia, unspecified
CPT/HCPCS: 36415; 80053; 80061; 82306; 83036; 84439; 84443; 85025

== ENCOUNTER 2024-10-15 09:19 | Outpatient (CLI) | payer BC, SELFPAY ==
--- OUTSIDE RECORDS SUMMARY | 2024-10-15 09:57 | XMS_ITS | Continuity of Care Document ---
Author Organization [facility] Address [address] [facility] [place] [address] [place] [address] Phone Care Team Providers Care Stud Sheep Farmer Name Role Phone Cosmo Ruiz MD Unavailable [...] Diagnoses Date Provider Providers Copied on Encounter [facility], [address] [place], [place], [address], tel:[phone] [facility] No Information 3 Joseph Man [address], [address] , [place]. tel:[phone] OFFICE/OUTPA TIENT VISIT, [facility], [address] [place], [address], [place] tel:[phone] [facility] hashimoto1 (chief complaint) neuropathy 1 (chief complaint) diverticul osis1 (chief complaint) fatty liver1 (chief complaint) Fatty liverHashimoto's thyroiditisIdiopath ic progressive neuropathyDiverticu losis of intestine without abscess without bleedingOther specified disorder of bone densityInconclusive mammogram 3 Joseph Man [address], [address] , [place]. tel:[phone] OFFICE/OUTPA TIENT VISIT, [facility], [address], [address], [place] tel:[phone] [facility] liver disease1 (chief complaint) colon1 (chief complaint) bone (chief complaint) spot (chief complaint) Liver diseaseOther specified disorder of bone densityPolyp of colonEczema 3 Joseph Man [address], [address], [place], [place], [address] , [place]. tel:[phone] OFFICE/OUTPA TIENT VISIT, EST [facility], [address], [place], [place], [address], [place] tel:[phone] [facility] UTI1 (chief complaint) HLP (chief complaint) LFT (chief complaint) Acute cystitis without hematuriaMixed hyperlipidemiaLiver disease 0 3 Joseph Man [address], [address], [place], [place], [address] , [place]. tel:[phone] PREV VISIT, EST, AGE 40-64 [facility], [address], [place], [place], [address], [place] tel:[phone] [facility] physical (chief complaint) Encounter for general adult medical examination without abnormal findings 3 Joseph Wilburn. [address], [address], [place], [place], [address] , [place]. tel:[phone] OFFICE/OUTPA TIENT VISIT, EST [facility], [address], [place], [place], [address], [place] tel:[phone] [facility] hashimoto1 (chief complaint) back pain1 (chief complaint) neuropathy 1 (chief complaint) Kerline's thyroiditisEncounte r for oth screening for malignant neoplasm of breastOther spondylosis, lumbar regionIdiopathic progressive neuropathy 2 Joseph Man [address], [address], [place], [place], [address] , [place]. tel:[phone] OFFICE/OUTPA TIENT VISIT, EST [facility], [address], [place], [place], [address], [place] tel:[phone] [facility] hashimoto1 (chief complaint) Kerline's thyroiditis 2 Joseph Wilburn. [address], [address], [place], [place], [address] , [place]. tel:[phone] OFFICE/OUTPA TIENT VISIT, EST [facility], [address], [place], [place], [address], [place] tel:[phone] [facility] hashimoto1 (chief complaint) HLP (chief complaint) UTI1 (chief complaint) HyperlipidemiaHashi gwen's thyroiditisUrinary tract infection 2 Joseph Wilubrn. [address], [address], [place], [place], [address] , [place]. tel:[phone] OFFICE/OUTPA TIENT VISIT, EST [facility], [address], [place], [place], [address], [place] tel:[phone] [facility] UTI1 (chief complaint) glucose1 (chief complaint) HLP (chief complaint) thyroid1 (chief complaint) foot pain1 (chief complaint) Hyperlipidemia, unspecifiedHypothyr oidismHyperglycemia Urinary tract infectionEncounter for screening for malignant neoplasm of colonPain in unspecified foot 2 Joseph Man [address], [address], [place], [place], [address] , [place]. tel:[phone] PREV VISIT, EST, AGE 40-64 [facility], [address], [place], [place], [address], [place] tel:[phone] [facility] physical (chief complaint) Encounter for general adult medical examination without abnormal findings 2 Joseph Wilburn. [address], [address], [place], [place], [address] , [place]. tel:[phone] OFFICE/OUTPA TIENT VISIT, EST [facility], [address], [place], [place], [address], [place] tel:[phone] [facility] HLp (chief complaint) anxiety1 (chief complaint) neuropathy 1 (chief complaint) knee pain1 (chief complaint) Generalized Anxiety DisorderNeuropathyL iver diseaseHyperlipidem iaPain in unspecified knee 1 Joseph Man [address], [address], [place], [place], [address] , [place]. tel:[phone] OFFICE/OUTPA TIENT VISIT, EST [facility], [address], [place], [place], [address], [place] tel:[phone] [facility] chronic pain1 (chief complaint) KCL (chief complaint) Liver (chief complaint) HyperkalemiaNeuropa thyLiver diseaseChronic pain syndrome 0 Joseph Man [address], [address], [place], [place], [address] , [place]. tel:[phone] OFFICE/OUTPA TIENT VISIT, EST [facility], [address], [place], [place], [address], [place] [phone] [facility] HLP (chief complaint) glucose1 (chief complaint) LFT (chief complaint) neuropathy 1 (chief complaint) HyperglycemiaLiver diseaseHyperkalemia Generalized Anxiety DisorderNeuropathyH yperlipidemia 0 Joseph Man [address], [address], [place], [place], [address] , [place]. [phone] Referring Provider: Jefry Kay [address], [place], [place], [address]. tel:[phone] PREV VISIT, EST, AGE 40-64 [facility], [address], [place], [place], [address], [place] tel:[phone] [facility] physical (chief complaint) Encntr for general adult medical exam w/o abnormal findings 9 Joseph Man [address], [address], [place], [place], [address] , [place]. tel:[phone] OFFICE/OUTPA TIENT VISIT, EST [facility], [address], [place], [place], [address], [place] tel:[phone] [facility] GERD1 (chief complaint) chronic pain1 (chief complaint) GERD w/o esophagitisNeuropat hyChronic pain syndrome 9 Joseph Man [address], [place], [place], [address] , [place]. tel:[phone] Referring Provider: Jefry Kay [address], [place], [place], [address]. tel:[phone] OFFICE/OUTPA TIENT VISIT, [facility], [address], [place], [place], [address], [place] tel:[phone] [facility] neck pain1 (chief complaint) back pain1 (chief complaint) GERD1 (chief complaint) Other spondylosis, cervical regionOther spondylosis, lumbar regionBarrett's esophagus without dysplasiaLumbago with sciatica, left side 9 Joseph Wilburn. [address], [address], [place], [place], [address] , [place]. tel:[phone] Referring Provider: Jefry Kay [address], [place], [place], [address]. tel:[phone] OFFICE/OUTPA TIENT VISIT, [facility], [address], [place], [place], [address], [place] tel:[phone] [facility] sciatica1 (chief complaint) neck pain1 (chief complaint) anxiety1 (chief complaint) Other spondylosis, cervical regionOther spondylosis, lumbar regionGeneralized Anxiety Disorder 9 Joseph Wilburn. [address], [place], [place], [address] , [place]. tel:[phone] Referring Provider: Jefry Kay [address], [place], [place], [address]. tel:[phone] OFFICE/OUTPA TIENT VISIT, [facility], [address], [place], [place], [address], [place] tel:[phone] [facility] HLp (chief complaint) calcium1 (chief complaint) A1c (chief complaint) back pain1 (chief complaint) HypercalcemiaHyperg lycemiaPolyp of colonChronic pain syndromeHyperlipide shira 8 Joseph Man [address], [place], [place], [address] , [place]. tel:[phone] Referring Provider: Jefry Kay [facility] A, [place], [place], [address]. tel:[phone] OFFICE/OUTPA TIENT VISIT, [facility], [address] [place] [address] [place], [address], tel:[phone] [facility] GERD1 (chief complaint) colon polyp1 (chief complaint) HLP (chief complaint) glucose1 (chief complaint) hand pain1 (chief complaint) Crow's esophagus without dysplasiaPolyp of colonHyperlipidemia HypercalcemiaTrigge r finger, right middle finger Sep- 8 Joseph Wilburn. [address] [facility] [address], [place], [place], [address] , [place]. tel:[phone] Referring Provider: Jefry Kay [facility] A, [place], [place], [address]. tel:[phone] OFFICE/OUTPA TIENT VISIT, [facility], [facility] [address] [place] [place], [address], [place] tel:[phone] [facility] LFt (chief complaint) glucose1 (chief complaint) HLP (chief complaint) neck pain1 (chief complaint) GERD1 (chief complaint) Hyperlipidemia, unspecifiedHypergly cemiaLiver diseaseGERD w/o esophagitisRadiculo ellen, cervical regionInconclusive mammogram 8 [facility], [place], [place], [address] , [place]. [phone] Referring Provider: Jefry Kay [address], [place], [place], [address]. tel:[phone] PREV VISIT, NEW, AGE 40-64 [facility], [address] [place], [address], [place] tel:[phone] [facility] physical (chief complaint) Encounter for general adult medical exam w abnormal findingsHyperlipide shira, unspecifiedGastro-e sophageal reflux disease without esophagitisRadiculo ellen, cervical region [address] Joseph [address], [place], [place], [address] , . tel:[phone] Referring Provider: Jefry Kay [facility] A, [place], [place], [address]. tel:[phone] Family History Family Member Type Diagnosis Age At Onset Mother Problem (finding) Alive and well Brother Problem (finding) colon CA 57 Brother Problem (finding) Alive and well Father Problem (finding) cirrhosis from alcohol 55 Payers Payer name Insurance type Covered democrat ID Authoriza tion(s) No Information Social History [...] -Podiatric Medicine & Surgery Service Providers : Geology Professor (related to Encounter for general adult medical examination without abnormal findings) ordered Referral Ordered: FOOT XRAY, TWO VIEW Bilateral ordered Referral Referred To: IHSAN NANCE [address] [facility] [place], [place], [phone] Ordered: Referrals: Podiatric Medicine & Surgery Service Providers : Geology Professor. IHSAN NANCE. Evaluate and treat ordered Referral Ordered: Yvan Salazar -Allopathic & Osteopathic Physicians : Orthopaedic Surgery (related to Pain in unspecified knee) ordered Referral Referred To: Yvan Salazar [address], [place], [phone] Ordered: Referrals: Allopathic & Osteopathic Physicians : Orthopaedic Surgery. Yvan Salazar. Evaluate and treat ordered Referral Ordered: Pain Medicine (related to Chronic pain syndrome) ordered Referral Ordered: Referrals: Pain Medicine. Evaluate and treat ordered Referral Ordered: US EXAM, ABDOM, COMPLETE ordered Referral Referred To: Hernan Young MD [address]
[place], [address] Ordered: Referrals: Hernan Young MD. Evaluate and [...] finger) ordered Referral Referred To: Booker Tay [address] [place], [place] [id number] Ordered: Referrals: Allopathic & Osteopathic Physicians : [...] foot x ray. Pt has carin with crepe sole wire brusher next week. Pt denies any injury. physical [...] pt denies any injury. 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 Relate d to Hyperlipidemia, unspecified Increase activity. Related to Hy perlipidemia, unspecified Special diet education Related t o Body mass index (BMI) 26.0-26.9, adult Assessments Type Assessment Date No Information
--- OUTSIDE RECORDS SUMMARY | 2024-10-15 09:57 | XMS_ITS | Clinical Summary ---
Author Organization [facility] Address [address] [facility] [place] [address] Care Team Providers Care Cardiothoracic Icu Rn Name Role Phone Cosmo Ruiz MD Primary Care Provider [phone] Source Comments [facility],non-owned Affiliates and Associated Physician Practices is amultiple site organization consisting of ambulatory clinics and hospital sitesin [place], [place], [place] and [place]. This disclosure is being madepursuant to the Care Everywhere program and may not contain all information available regarding this patient. Last updated 18.[facility] Allergies Active Allergy Reactions Criticality Noted Date [...] Comments Blood Pressure 126/79 07/09/2020 9:50 AM SWING SAW OPERATOR Pulse 100 07/09/2020 9:50 AM SWING SAW OPERATOR Temperature 36.7 C (98 F) 07/09/2020 9:50 AM SWING SAW OPERATOR Respiratory Rate 16 07/09/2020 9:50 AM SWING SAW OPERATOR Oxygen Saturation 100% 07/09/2020 9:50 AM SWING SAW OPERATOR Inhaled Oxygen Concentration - - Weight 74.8 kg (165 lb) 07/09/2020 9:50 AM SWING SAW OPERATOR Height 170.2 cm (5' 7 ) 07/09/2020 9:50 AM SWING SAW OPERATOR Body Mass Index 25.84 07/09/2020 9:50 AM SWING SAW OPERATOR Plan of Treatment Health Maintenance Due Date [...] patient's age to complete this topic Insurance [facility] Care Teams Cardiothoracic Icu Rn Relationship Specialty Start Date End Date Cosmo Ruiz MD PCP - General 06/25/20
[2024-10-15 13:32] LABS: Anion Gap 5 mmol/L (4-12); Blood Urea Nitrogen 13 mg/dL (7-17); Calcium 9.6 mg/dL (8.4-10.2); Carbon Dioxide 33 mmol/L (22-30); Chloride 102 mmol/L (98-107); Estimated Glomerular Filt Rate > 60; Glucose 98 mg/dL (65-110); Sodium 140 mmol/L (137-145)
== END 2024-10-15 09:20 | disposition home or self-care (01) ==
LOC: ANHGOSHLAB 09:20
PROVIDERS: PCP Nurse Practitioner Family; Visit Provider Nurse Practitioner Family
DX: E87.5 Hyperkalemia (principal)
CPT/HCPCS: 36415; 80048

== ENCOUNTER 2025-04-02 17:20 | Emergency (ER) | payer BC, SELFPAY ==
--- NOTE | ~2025-04-02 | XR_ITS ---
XR shoulder RT min 2V 04/02/2025 18:00 INDICATION: Right shoulder pain after fall PROCEDURE: 4 views right shoulder COMPARISON: No prior studies for comparison. FINDINGS: Fracture, dislocation or subluxation is not identified. Mild osteoarthritis of the acromioclavicular joint. The soft tissues appear within normal limits. No foreign bodies are identified. IMPRESSION: 1: NO ACUTE BONE OR JOINT ABNORMALITY IDENTIFIED. Reviewed, dictated and finalized at location O. SFUSION AIDE
--- NOTE | ~2025-04-02 | CT_ITS ---
EXAMINATION: CT cervical spine wo con COMPARISON: None HISTORY: fall TECHNIQUE: Axial images were obtained through the spine without IV contrast. Coronal, sagittal reconstruction images were obtained from the axial views. CT scan performed using dose optimization techniques including the following automated exposure control; adjustment of mA and/or kV; use of iterative reconstruction technique. Automatic exposure control was used to reduce radiation dose. Permanent radiation dose record is archived to PACS. FINDINGS: There is no fracture identified, there is fusion of C5 and C6. There is severe loss of disc height at C3-4, C4-5 and C6-7 with moderate to severe canal and foraminal stenosis, outpatient MRI is recommended Soft tissues unremarkable. Impression: No acute abnormality. Reviewed, dictated and finalized at location P. 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
--- NOTE | ~2025-04-02 | CT_ITS ---
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 Technique: Axial images obtained of the brain without contrast. One or more of the following dose reduction techniques were used: automated exposure control, adjustment of the mA and/or kV according to patient size, use of iterative reconstruction technique. Findings: No acute infarct or parenchymal hemorrhage. No abnormal mass or mass effect. No midline shift. No extra-axial fluid collections. No hydrocephalus. Mastoid air cells unremarkable. Sinuses and orbits unremarkable. No acute fracture. No significant facial or scalp soft tissue swelling evident. No radiopaque foreign body is seen. Impression: 1.No acute intracranial abnormality. Reviewed, dictated and finalized at location P. R CARRIER INSPECTOR Impression: 1.No acute intracranial abnormality.
--- NOTE | 2025-04-02 17:33 | ED.FALL ---
HPI - Fall General Chief Complaint: Fall <Nathalia Doherty PA-C - Last Filed: 04/04/25 15:51> Stated Complaint: fall <Nathalia Doherty PA-C - Last Filed: 04/04/25 15:51> Time Seen by Provider: 04/02/25 17:33 <Nathalia Doherty PA-C - Last Filed: 04/04/25 15:51> Focused HPI: This is a 59 year old female that presents to the ER for a fall today. Reports she tripped and fell at work. Reports right shoulder pain, neck pain. Unsure if she hit her head. She did not lose consciousness. GENERAL: Well-appearing, well-nourished, and in no acute distress. HEAD: Normocephalic, atraumatic. CHEST: Clear to auscultation. ?No respiratory distress. HEART: Regular rate and rhythm.? NEURO: ?Alert and oriented x3. Normal gait Patient screened in triage and initial orders placed.? ?Additional care and disposition to be based upon?diagnostic testing and treatment. <Nathalia Doherty PA-C - Last Filed: 04/04/25 15:51> History of Present Illness HPI Narrative: Agree with HPI. <Aníbal Alexis DO - Last Filed: 04/04/25 21:51> Related Data Home Medications: Home Medications ?Medication ?Instructions ?Recorded ?Confirmed ?Last Taken ?Type multivitamin with minerals 1 tablet PO DAILY 06/30/21 10/06/24 06/08/24 History ascorbic acid 125 mg-collagen, 1 cap PO DAILY 06/01/23 10/06/24 06/08/24 History hydrolyzed 740 mg capsule (Collagen Plus Vitamin C) esomeprazole magnesium 20 mg 20 mg PO DAILY 06/01/23 10/06/24 06/10/24 History capsule,delayed release (Nexium) melatonin 10 mg capsule 10 mg PO QHS 06/01/23 10/06/24 06/10/24 History naproxen sodium 220 mg capsule 220 mg PO BID PRN Mild Pain (Scale 06/01/23 10/06/24 06/08/24 History Score 1-4) niacin 500 mg tablet 500 mg PO DAILY 06/01/23 10/06/24 06/08/24 History vitamin B complex 1 tablet PO DAILY 06/01/23 10/06/24 06/08/24 History calcium 600 mg (as 1 tablet PO DAILY 06/04/24 10/06/24 06/08/24 History carbonate)-vitamin D3 10 mcg (400 unit) tablet (Calcium 600 + D(3)) <Nathalia Doherty PA-C - Last Filed: 04/04/25 15:51> Allergies/Adverse Reactions: Allergies Allergy/AdvReac Type Severity Reaction Status Date / Time codeine AdvReac Mild Headache Verified 04/02/25 17:37 <ZAN Smith Last Filed: 04/04/25 15:51> Review of Systems Review of Systems: Gen.: Denies fevers or chills Eyes: Denies eye pain or visual change ENT: Denies congestion Respiratory: Denies shortness of breath or cough CV: Denies chest pain or palpitations GI: Denies abdominal pain nausea, emesis or diarrhea denies burning, urgency, frequency or hematuria Musculoskeletal: As per HPI Neuro: Denies numbness, tingling, weakness or focal weakness Skin: Denies rash Except as documented, all other systems reviewed and negative <Aníbal Alexis DO - Last Filed: 04/04/25 21:51> [facility] Past Medical History Medical History: Medical History Presence of surgical screw in left hand Carpal tunnel syndrome on both sides Darvin's thyroiditis Arthritis GERD (gastroesophageal reflux disease) Hyperlipidemia <Nathalia Doherty PA-C - Last Filed: 04/04/25 15:51> Surgical History Surgical History: Surgical History H/O radiofrequency ablation (RFA) of nerve of lumbar spine History of removal of ovarian cyst History of hysterectomy History of cholecystectomy <ZAN Smith Last Filed: 04/04/25 15:51> Family History Family History: Family History Father Alcoholism Depression Mother Thyroid condition Sibling Carcinoma of colon Son Alcoholism Grandparent Heart problem <ZAN Smith Last Filed: 04/04/25 15:51> Social History Social History: Social History Social History: Caffeine-coffee Years smoked: 10 Tobacco type: cigarettes Smoking end date: 06/04/06 Alcohol intake: current Drinks per week: 5 Alcohol use details: wine Substance use: current Substance use type: marijuana Other substance usage details: THC gummy every once in awhile in evening. Do You Feel Safe in your Home?: Yes Lack of Transportation: No Lack of Food: Never True Current Housing: I Have Housing Concerned About Future Housing: No Difficulty Paying Gas/Electric Bills: No Difficulty Paying for Meds: No Currently Unemployed: No Education: High School Diploma/GED Difficulty w/ Childcare or Family Care: No Living arrangements: with family Spiritual care concerns: No <Nathalia Doherty PA-C - Last Filed: 04/04/25 15:51> Exam Narrative: APPEARANCE: No acute distress, nontoxic, resting in bed EYES: EOMI HEENT: Normocephalic, atraumatic, OMM. No midline cervical tenderness to palpation, step-offs, deformities. RESPIRATORY: No respiratory distress Clear to auscultation bilaterally with no rhonchi wheezing or rales. CARDIOVASCULAR: Regular rate and rhythm without murmurs rubs or gallops. ABDOMINAL: Soft, nontender, nondistended, no rebound or guarding MUSCULOSKELETAl: Moves all extremities. Tenderness to palpation over the right glenohumeral joint NEURO: Awake and alert. Following commands, speech normal, no focal deficits SKIN:: Warm, dry. No rashes lesions or abrasions PSYCHIATRIC: Normal affect/mood, <Aníbal Alexis DO - Last Filed: 04/04/25 21:51> Course Vital Signs Vital signs: Vital Signs Temperature 97.4 F L 04/02/25 17:35 Pulse Rate 86 04/02/25 17:35 Respiratory Rate 16 04/02/25 17:35 Blood Pressure 126/75 04/02/25 17:35 Pulse Oximetry 100 04/02/25 17:35 Oxygen Delivery Room Air 04/02/25 17:35 Temperature 97.4 F L 04/02/25 17:35 Pulse Rate 79 04/02/25 19:33 Respiratory Rate 16 04/02/25 19:33 Blood Pressure 128/72 04/02/25 19:33 Pulse Oximetry 100 04/02/25 19:33 Oxygen Delivery Room Air 04/02/25 17:35 <ANGELINE Smith-Rosmery - Last Filed: 04/04/25 15:51> Vital Signs Temperature 97.4 F L 04/02/25 17:35 Pulse Rate 86 04/02/25 17:35 Respiratory Rate 16 04/02/25 17:35 Blood Pressure 126/75 04/02/25 17:35 Pulse Oximetry 100 04/02/25 17:35 Oxygen Delivery Room Air 04/02/25 17:35 Temperature 97.4 F L 04/02/25 17:35 Pulse Rate 79 04/02/25 19:33 Respiratory Rate 16 04/02/25 19:33 Blood Pressure 128/72 04/02/25 19:33 Pulse Oximetry 100 04/02/25 19:33 Oxygen Delivery Room Air 04/02/25 17:35 <Aníbal Alexis DO - Last Filed: 04/04/25 21:51> MDM - Fall MDM Narrative Medical decision making narrative: 59-year-old female Presenting for fall and right shoulder pain. On initial evaluation patient was in no acute distress afebrile, hemodynamic stable. Differentials include but are not limited to: Fracture, sprain, strain, contusion ICH, cervical fracture, cervical sprain Notable exam findings: Tenderness over the right glenohumeral joint. No obvious signs of head trauma. Notable imaging findings: CT head and C-spine without acute abnormalities. X-ray right shoulder showed no acute abnormalities. Scans were without acute abnormalities. Patient likely sprained her right shoulder. She was offered a sling and was educated on gyipd-fa-guonyy exercises to avoid frozen shoulder. She was advised follow-up with her PCP in the next week for re-evaluation. Patient was agreeable to this plan. Given strict return precautions. <Aníbal Alexis DO - Last Filed: 04/04/25 21:51> Medical Records Attestation: I reviewed the patient's medical records. <Aníbal Alexis DO - Last Filed: 04/04/25 21:51> Imaging Data Attestation: I personally reviewed and interpreted this imaging study as follows: <DO Jono Berger Last Filed: 04/04/25 21:51> Radiologist's impression: XR shoulder RT min 2V 04/02/2025 18:00 INDICATION: Right shoulder pain after fall PROCEDURE: 4 views right shoulder COMPARISON: No prior studies for comparison. FINDINGS: Fracture, dislocation or subluxation is not identified. Mild osteoarthritis of the acromioclavicular joint. The soft tissues appear within normal limits. No foreign bodies are identified. IMPRESSION: 1: NO ACUTE BONE OR JOINT ABNORMALITY IDENTIFIED. EXAMINATION: CT cervical spine wo con COMPARISON: None HISTORY: fall TECHNIQUE: Axial images were obtained through the spine without IV contrast. Coronal, sagittal reconstruction images were obtained from the axial views. CT scan performed using dose optimization techniques including the following automated exposure control; adjustment of mA and/or kV; use of iterative reconstruction technique. Automatic exposure control was used to reduce radiation dose. Permanent radiation dose record is archived to PACS. FINDINGS: There is no fracture identified, there is fusion of C5 and C6. There is severe loss of disc height at C3-4, C4-5 and C6-7 with moderate to severe canal and foraminal stenosis, outpatient MRI is recommended Soft tissues unremarkable. Impression: No acute abnormality. 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 Technique: Axial images obtained of the brain without contrast. One or more of the following dose reduction techniques were used: automated exposure control, adjustment of the mA and/or kV according to patient size, use of iterative reconstruction technique. Findings: No acute infarct or parenchymal hemorrhage. No abnormal mass or mass effect. No midline shift. No extra-axial fluid collections. No hydrocephalus. Mastoid air cells unremarkable. Sinuses and orbits unremarkable. No acute fracture. No significant facial or scalp soft tissue swelling evident. No radiopaque foreign body is seen. Impression: 1.No acute intracranial abnormality. <Aníbal Alexis, - Last Filed: 04/04/25 21:51> Discharge Plan Discharge Clinical Impression: Muscle spasm Fall Qualifiers: Encounter type: initial encounter Qualified Code(s): W19.XXXA - Unspecified fall, initial encounter CHI (closed head injury) Qualifiers: Encounter type: initial encounter Qualified Code(s): S09.90XA - Unspecified injury of head, initial encounter Sprain of right shoulder Qualifiers: Encounter type: initial encounter Shoulder sprain type: unspecified sprain Qualified Code(s): S43.401A - Unspecified sprain of right shoulder joint, initial encounter <Nathalia Doherty PA-C - Last Filed: 04/04/25 15:51> Patient Disposition: Home <ZAN Smith Last Filed: 04/04/25 15:51> Condition: Stable <ZAN Smith Last Filed: 04/04/25 15:51> Instructions: Antibiotic Form, Head Injury (ED), Shoulder Sprain (ED) <ZAN Smith Last Filed: 04/04/25 15:51> Additional Instructions: The CTs and x-ray showed no acute abnormalities. You likely have a shoulder sprain. You are given an arm sling for comfort. Try to do small movements with her shoulder frequently to avoid frozen shoulder. Take Tylenol and ibuprofen for the pain. Your given prescriptions for Lidoderm and Flexeril, take this as prescribed. Follow up with her PCP in the next week for re-evaluation if needed. Return to the ED for any new or worsening symptoms. <Nathalia Doherty PA-C - Last Filed: 04/04/25 15:51> Patient Language: Moroccan <ZAN Smith Last Filed: 04/04/25 15:51> Prescriptions: New cyclobenzaprine 10 mg tablet 10 mg PO HS PRN (Reason: muscle spasm) Qty: 20 0RF lidocaine [Lidoderm] 5 % adhesive patch,medicated 1 patch topical DAILY Qty: 15 0RF Rx Instructions: leave on most painful area for up to 12 hrs No Action amitriptyline 25 mg tablet 25 mg PO BID Qty: 180 3RF levothyroxine 50 mcg tablet 50 mcg PO DAILY Qty: 90 3RF cyclobenzaprine 10 mg tablet 10 mg PO DAILY PRN (Reason: spasms) Qty: 30 1RF esomeprazole magnesium [Nexium] 20 mg capsule,delayed release(DR/EC) 20 mg PO DAILY melatonin 10 mg capsule 10 mg PO QHS niacin 500 mg tablet 500 mg PO DAILY vitamin B complex Tablet 1 tablet PO DAILY Collagen Plus Vitamin C 125-740 mg capsule 1 cap PO DAILY naproxen sodium 220 mg capsule 220 mg PO BID PRN (Reason: Mild Pain (Scale Score 1-4)) multivitamin with minerals Tablet 1 tablet PO DAILY calcium carbonate-vitamin D3 [Calcium 600 + D(3)] 600 mg-10 mcg (400 unit) tablet 1 tablet PO DAILY rosuvastatin 10 mg tablet 10 mg PO HS Qty: 90 0RF venlafaxine 37.5 mg capsule,extended release 24hr 37.5 mg PO HS Qty: 90 0RF Rx Instructions: NEEDS APPOINTMENT FOR FURTHER REFILLS gabapentin 600 mg tablet 600 mg PO TID Qty: 90 5RF <Nathalia Doherty PA-C - Last Filed: 04/04/25 15:51> Follow-up/Referrals: Dennise Alvarado APRN [Primary Care Provider, Family Practice] <Nathalia Doherty PA-C - Last Filed: 04/04/25 15:51>
[2025-04-02 17:35] VITALS: BP 126/75; PULSE 86; RESP 16; TEMP 36.3; O2SAT 100
[2025-04-02] MEDS: LIDOCAINE 5% PATCH 1 PATCH TRANSDERM (19:24)
[2025-04-02 19:33] VITALS: BP 128/72; PULSE 79; RESP 16; O2SAT 100
--- OUTSIDE RECORDS SUMMARY | 2025-04-02 21:11 | XMS_ITS | Clinical Summary ---
Author Organization [facility] Address [address] [place] [address] Care Team Providers Care Summer Clerk Name Role Phone Cosmo Ruiz MD Primary Care Provider [phone] Source Comments [facility],non-owned Affiliates and Associated Physician Practices is amultiple site organization consisting of ambulatory clinics and hospital sitesin [place], [place], [place] and [place]. This disclosure is being madepursuant to the Care Everywhere program and may not contain all information available regarding this patient. Last updated 18.[facility] Allergies Active Allergy Reactions Criticality Noted Date [...] Comments Blood Pressure 126/79 07/09/2020 9:50 AM [employer] Pulse 100 07/09/2020 9:50 AM [employer] Temperature 36.7 C (98 F) 07/09/2020 9:50 AM [employer] Respiratory Rate 16 07/09/2020 9:50 AM [employer] Oxygen Saturation 100% 07/09/2020 9:50 AM [employer] Inhaled Oxygen Concentration - - Weight 74.8 kg (165 lb) 07/09/2020 9:50 AM [employer] Height 170.2 cm (5' 7) 07/09/2020 9:50 AM [employer] Body Mass Index 25.84 07/09/2020 9:50 AM [employer] Plan of Treatment Health Maintenance Due Date [...] 12/05/1982 DTAP/TDAP/TD VACCINES (1 - Tdap) 12/10/1983 PNEUMOCOCCAL VACCINE 50+ (1 of 1 - PCV) 2014 ZOSTER VACCINE (1 of 2) 2014 SCREENING FOR DIABETES 07/09/2020 DEPRESSION SCREENING 05/28/2024 COVID-19 VACCINE (1 - 2023-2 5 season) 2025 INFLUENZA VACCINE (#1) 2025 02/17/2020 Respiratory Syncytial Virus (RSV) Vaccine Pt: or over 60 yrs (1 - 1-dose 75+ series) 12/10/2039 HEPATITIS B VACCINE Aged Out No longe r eligible based on patient's age to complete this topic HIB VACCINE Aged Out No longer eligi [...] patient's age to complete this topic Insurance [facility] Care Teams Summer Clerk Relationship Specialty Start Date End Date Cosmo Ruiz MD PCP - General 06/25/20
--- OUTSIDE RECORDS SUMMARY | 2025-04-02 21:11 | XMS_ITS | Clinical Summary ---
Author Organization [facility] at the [facility] Address [address] [place] [id number] Care Team Providers Care Air And Water Tester Name Role Phone Dennise Alvarado NP Primary Care Provider [phone] Allergies Active Allergy Reactions Criticality Noted Date Comments Codeine Stomach upset,Headache Low 12/17/2024 Medications rosuvastatin (CRESTOR) 10 mg tablet Take 1 tablet (10 mg total) by mouth nightly at bedtime. 5 Active simvastatin (ZOCOR) 40 mg tablet Take 1 tablet (40 mg total) by mouth nightly 0 Active venlafaxine XR (EFFEXOR-XR) 37.5 mg 24 hr capsule Take 1 capsule (37.5 mg total) by mouth nightly Active levothyroxine (SYNTHROID) 50 mcg tablet Take 1 tablet (50 mcg total) by mouth daily 5 Active gabapentin (NEURONTIN) 600 mg tablet Take 1 tablet (600 mg total) by mouth 3 (three) times a day Active esomeprazole DR (NexIUM) 40 mg capsule Take 1 capsule (40 mg total) by mouth as directed 8 Active calcium carbonate-vitamin D3 1,500 mg (600mg elemental) -800 unit per tablet Take 1 tablet by mouth 2 (two) times a day Active amitriptyline (ELAVIL) 25 mg tablet Take 1 tablet (25 mg total) by mouth 2 (two) times a day Active multivitamin tablet Take 1 tablet by mouth daily Active triamcinolone (KENALOG) 0.1 % creamIndications: Skin Inflammation Apply topically 2 (two) times a day for 10 days 30 g 5 Active Active Problems No known active problems Encounters Date Type Department Care Team Description 01/01/2025 7:34 AM CDT - 01/01/2025 11:59 PM CDT Hospital Encounter [facility] MRI [address] [place] [address] Low back pain, unspecified back pain laterality, unspecified chronicity, unspecified whether sciatica present Discharge Disposition: Discharge to home or self care from Last 3 Months Social History Tobacco Use Types Packs/Day Years Used Date Smoking Tobacco: Never Assessed Comments Unknown Sex and Gender Information Value Date Recorded Sex Assigned at Not on file Legal Sex Female 1:19 PM CDT Gender Identity Not on file Sexual Orientation Not on file Last Filed Vital Signs Vital Sign Reading Time Taken Comments Blood Pressure 136/80 12/17/2024 12:02 PM CDT Pulse 95 12/17/2024 12:02 PM CDT Temperature 36.5 C (97.7 F) 12/17/2024 12:02 PM CDT Respiratory Rate 18 12/17/2024 12:02 PM CDT Oxygen Saturation 99% 12/17/2024 12:02 PM CDT Inhaled Oxygen Concentration - - Weight 69.9 kg (154 lb 1.6 oz) 12/17/2024 12:02 PM CDT Height 170.2 cm (5' 7) 12/17/2024 12:02 PM CDT Body Mass Index 24.14 12/17/2024 12:02 PM CDT Plan of Treatment Health Maintenance Due Date Last Done Comments Breast Cancer Screening-Mammogram 1965 Cervical Cancer Screening 1965 Colon Cancer Screening-Colonoscopy 1965 Depression Screening 1964 Hepatitis C Screening 1964 DTaP/Tdap/Td Vaccine (1 - Tdap) 12/10/1975 Hepatitis B Screening 1982 Regular Well Visit/Exam 18-64 1982 Covid-19 Vaccine ( season) 2025 06/08/2021, 09/05/2020, 08/10/2020 Influenza Vaccine (#1) 2025 4, 02/07/2023, 02/25/2022, Additional history exists Zoster Vaccine Completed 06/27/2023, 02/07/2023 Pneumococcal vaccine <65 Aged Out 04/17/2024 No longer eligible based on patient's age to complete this topic Procedures Procedure Name Priority Date/Time Associated Diagnosis Comments MRI LUMBAR SPINE WO CONTRAST Schedule Routine, Read Routine (OP Routine) 01/01/2025 8:18 AM CDT Low back pain, unspecified back pain laterality, unspecified chronicity, unspecified whether sciatica present from Last 3 Months Results * MRI Lumbar Spine WO Contrast (01/01/2025 8:18 AM CDT) Anatomical Region Laterality Modality Spine N/A Magnetic Resonan ce 01/01/2025 9:29 AM CDT Narrative 01/01/2025 9:38 AM CDT EXAM DESCRIPTION: MRI LUMBAR SPINE WO CONTRAST REASON FOR STUDY: lumbago Chronic lower back pain with right sided sciatica for several years. No surgery. TECHNIQUE: Sagittal and Axial imaging includes T1, T2, STIR sequences. COMPARISON: None available FINDINGS: SEGMENTATION: No transitional anatomy. The lowest well-developed disc space is labeled L5-S1. ALIGNMENT: Grade 1 L4 on L5 anterolisthesis . Minimal L3 on L4 retrolisthesis VERTEBRAE: Type 1 Modic endplate changes at T11-12 and to a larger degree at L5-S1. No suspicious associated disc signal or prevertebral soft tissue swelling. No evidence of recent fracture or ligamentous injury. DISC HEIGHT: Multilevel degenerative disc disease, most pronounced and moderate at L4-L5. HARDWARE: None in the spine. CORD/CAUDA: Normal in size and signal intensity. Conus at the T12 LOWER THORACIC: Incompletely imaged. No stenosis seen. INDIVIDUAL DISC LEVELS: T12-L1: Minimal disc bulge. Mild facet arthropathy. No neural foraminal or spinal canal stenosis L1-2: No posterior disc bulge. Mild facet arthropathy. No significant neural foraminal stenosis. No spinal canal stenosis L2-3: Normal disc configuration. Mild left facet arthropathy. No neural foraminal or spinal canal stenosis L3-4: Minimal disc bulge. Mild facet arthropathy. No neural foraminal or spinal canal stenosis L4-5: Disc bulge and uncovering. Ligamentum flavum thickening. Severe bilateral facet arthropathy. Tjch-fd-cbyiwlkt bilateral neural foraminal stenosis. Mild spinal canal stenosis with wdev-mhcfags-rykh-right lateral recess narrowing. L5-S1: Mild disc bulge, eccentric to the left. Moderate facet arthropathy. Mild right neural foraminal stenosis. No spinal canal stenosis. SACRUM: Visualized upper sacrum intact. VISUALIZED UPPER ABDOMEN: There is bilateral renal pelviectasis OTHER: No other significant findings. IMPRESSION: Multilevel lumbar degenerative disc and joint disease, as detailed level by level above. Findings are most pronounced at L4-L5, where there is grade 1 anterolisthesis, mild spinal canal stenosis and tyqc-es-fzhicvwr bilateral neural foraminal stenosis. THIS IS AN ELECTRONICALLY VERIFIED FINAL REPORT 01/01/2025 9:38 AM - Electronically signed by Winston FERNÁNDEZ T: Report ID: [id number] Reading Location: [place] [address] Procedure Note Winston Wyatt MD - 01/01/2025 EXAM DESCRIPTION: MRI LUMBAR SPINE WO CONTRAST REASON FOR STUDY: lumbago Chronic lower back pain with right sided sciatica for several years. No surgery. TECHNIQUE: Sagittal and Axial imaging includes T1, T2, STIR sequences. COMPARISON: None available FINDINGS: SEGMENTATION: No transitional anatomy. The lowestwell-developed disc space is labeled L5-S1. ALIGNMENT: Grade 1 L4 on L5 anterolisthesis . Minimal L3 on L4 retrolisthesis VERTEBRAE: Type 1 Modic endplate changes at T11-12 and to a largerdegree at L5-S1. No suspicious associated disc signal or prevertebral soft tissue swelling. No evidence of recent fracture or ligamentous injury. DISC HEIGHT: Multilevel degenerative disc disease, most pronounced and moderate at L4-L5. HARDWARE: None in the spine. CORD/CAUDA: Normal in size and signal intensity. Conus at the T12 LOWER THORACIC: Incompletely imaged. No stenosis seen. INDIVIDUAL DISC LEVELS: T12-L1: Minimal disc bulge. Mild facet arthropathy. No neural foraminalor spinal canal stenosis L1-2: No posterior disc bulge. Mild facet arthropathy. No significant neural foraminal stenosis. No spinal canal stenosis L2-3: Normal disc configuration. Mild left facet arthropathy. Noneural foraminal or spinal canal stenosis L3-4: Minimal disc bulge. Mild facet arthropathy. No neural foraminalor spinal canal stenosis L4-5: Disc bulge and uncovering. Ligamentum flavum thickening. Severe bilateral facet arthropathy. Klif-fj-tznnerht bilateral neural foraminal stenosis. Mild spinal canal stenosis with rscq-dxibdyw-yspx-right lateral recess narrowing. L5-S1: Mild disc bulge, eccentric to the left. Moderate facetarthropathy. Mild right neural foraminal stenosis. No spinal canal stenosis. SACRUM: Visualized upper sacrum intact. VISUALIZED UPPER ABDOMEN: There is bilateral renal pelviectasis OTHER: No other significant findings. IMPRESSION: Multilevel lumbar degenerative disc and joint disease, asdetailed level by level above. Findings are most pronounced at L4-L5, where thereis grade 1 anterolisthesis, mild spinal canal stenosis and jgab-cf-bjslhrqk bilateral neural foraminal stenosis. THIS IS AN ELECTRONICALLY VERIFIED FINAL REPORT 01/01/2025 9:38 AM - Electronically signed by Winston Wyatt M.D. MZ T: Report ID: [id number] Reading Location: [place] [address] Kristine Crenshaw NP IMG MRI PROCEDURES Final Resu lt from Last 3 Months Insurance [facility] ACCESS CHOICE Member Subscriber Plan / Payer (Ef fective 2024-Present) Name:Mini Maddox Relation to Subscriber:Self Name:Mini Mdadox Payer ID:[id number] ([facility]) Type:WINNIE WARD Address: [facility] [id number] [place] [id number] Care Teams Air And Water Tester Relationship Specialty Start Date End Date Dennise Alvarado NP [address] [place] [address] PCP - General Family Medicine 11/25/24
== END 2025-04-02 19:37 | disposition home or self-care (01) ==
PROVIDERS: Emergency Provider Student in an Organized Health Care Education/Training Program; PCP Nurse Practitioner Family
DX: S43.401A Unspecified sprain of right shoulder joint, initial encounter (principal); S09.90XA Unspecified injury of head, initial encounter; E06.3 Autoimmune thyroiditis; E78.5 Hyperlipidemia, unspecified; M19.90 Unspecified osteoarthritis, unspecified site; K21.9 Gastro-esophageal reflux disease without esophagitis; Z87.891 Personal history of nicotine dependence; Z90.710 Acquired absence of both cervix and uterus; Z90.49 Acquired absence of other specified parts of digestive tract; W01.0XXA Fall on same level from slipping, tripping and stumbling without subsequent striking against object, initial encounter
CPT/HCPCS: 70450; 72125; 73030; 99284; A9270

== ENCOUNTER 2025-05-13 14:26 | Outpatient (CLI) | payer BC, SELFPAY ==
--- NOTE | ~2025-05-13 | DEXA_ITS ---
Bone Density Report Name: NAKIA REY Age: 59 Sex: Female Ethnicity: White Date of : 1965 Indication: postmenopausal; screening for osteoporosis; height loss; hysterectomy; Referring Provider: CHERELLE MORRIS Study: Bone densitometry was performed. Exam Date: May 13, 2025 Accession number: [id number] Bone Density: Region BMD T-score Z-score Classification AP Spine(L1-L4) 0.948 -0.9 0.5 Normal Femoral Neck (Left) 0.769 -0.7 0.6 Normal Total Hip (Left) 0.927 -0.1 0.8 Normal Femoral Neck (Right) 0.704 -1.3 0.0 Osteopenia Total Hip (Right) 0.823 -1.0 0.0 Normal Total Hip Mean 0.875 -0.6 0.4 Normal World Health Organization criteria for BMD impression classify patients as: Normal (T-score at or above -1.0), Osteopenia (T-score between -1.0 and -2.5), or Osteoporosis (T-score at or below -2.5). 10-year Fracture Risk(1): Major Osteoporotic Fracture 7.8% Hip Fracture 0.6% Reported Risk Factors: [place] (), Neck BMD=0.704, BMI=25.1 (1) FRAX(R) Version 3.08. Fracture probability calculated for an untreated patient. Fracture probability may be lower if the patient has received treatment. Previous Exams: Region Exam Age BMD T-score BMD Change BMD Change Date g/cm2 vs Baseline vs Previous AP Spine (L1-L4) 05/13/2025 59 0.948 -0.9 -0.059 (-5.9%) 0.004 (0.4%) 10/12/2022 56 0.944 -0.9 -0.063 (-6.3%) -0.063 (-6.3%) 10/15/2017 51 1.007 -0.4 Total Hip(Left) 05/13/2025 59 0.927 -0.1 -0.011 (-1.2%) 0.015 (1.7%) 10/12/2022 56 0.912 -0.2 -0.026 (-2.8%) -0.026 (-2.8%) 10/15/2017 51 0.938 0.0 Total Hip(Right) 05/13/2025 59 0.823 -1.0 -0.130 (-13.7% -0.062 (-7.0%) 10/12/2022 56 0.885 -0.5 -0.069 (-7.2%) -0.069 (-7.2%) 10/15/2017 51 0.953 0.1 *Denotes significance at 95% confidence level, LSC for AP Spine = 0.022 g/cm2, LSC for Total Hip = 0.027 g/cm2 Clinical Information Provided by Patient: Has used the following medications: Vitamin D, Calcium Has the following medical conditions: Hysterectomy Patient maximum height was 67 Menopause Age: 35 No regular weight bearing exercise Drinks caffeinated beverages Onset of menses at age 11 Number of children 2 Impression: The patient has low bone mass, based on the Right Femoral Neck T-score. The patient has an estimated ten-year risk of hip fracture of 0.6% and an estimated ten-year risk of major fracture of 7.8%, based on the WHO FRAX algorithm. The BMD for the Total Hip(Right) decreased, changing by -7.0% since the last DXA exam. Discussion: BONE DENSITY IS LOW AT ONE OR MORE SKELETAL SITES. This patient's lowest T-score is low at one or more skeletal sites. It meets the World Health Organization's (WHO) criteria for ?low bone mass? (T-score between -1.0 and -2.5). The patient's 10-year risk of fracture as calculated by FRAX is less than the threshold where pharmacological therapy is recommended by the National Osteoporosis Foundation (NOF). However, all treatment decisions require clinical judgment and consideration of individual patient factors, including patient preferences, comorbidities, previous drug use, risk factors not captured in the FRAX model (e.g., frailty, falls, vitamin D deficiency, increased bone turnover, interval significant decline in bone density) and possible under or overestimation of fracture risk by FRAX. The patient should follow a healthful lifestyle (good nutrition with adequate calcium and vitamin D, and appropriate weight-bearing exercise). Follow-Up: Consider repeating this study in 2 years to reassess this patient's status, or sooner if there is some new clinical indication. Reported by: MINESH on 05/13/2025 3:13:00 PM. Reviewed, dictated and finalized at location A.
--- NOTE | ~2025-05-13 | MM_ITS ---
EXAMINATION: MM screening brit BI w kevyn HISTORY: Screening TECHNIQUE: Craniocaudal and mediolateral oblique 3-D tomosynthesis images were obtained and synthetic 2-D images were generated. CAD analysis was submitted and interpreted. COMPARISON: Comparison to multiple prior studies sequentially, with oldest reviewed study dated , 08/08/2006 BREAST PARENCHYMAL COMPOSITION: Not Dense: There are scattered areas of fibroglandular density. FINDINGS: There is no evidence of suspicious mass, calcification, or architectural distortion to suggest malignancy in either breast. IMPRESSION: 1. No mammographic evidence of malignancy. 2. Recommend routine screening mammography in one year. BI-RADS Category 1: Negative Reviewed, dictated and finalized at location A. 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
== END 2025-05-13 14:27 | disposition home or self-care (01) ==
LOC: ANHFOHIMG 14:28
PROVIDERS: PCP Nurse Practitioner Family; Visit Provider Nurse Practitioner Family
DX: Z12.31 Encounter for screening mammogram for malignant neoplasm of breast (principal); M85.88 Other specified disorders of bone density and structure, other site; Z78.0 Asymptomatic menopausal state; Z13.820 Encounter for screening for osteoporosis
CPT/HCPCS: 77063; 77067; 77080